=== PATIENT | female | born 1985 | race African-American/Black ===

== ENCOUNTER 2019-06-04 11:13 | Emergency (ER) | payer OTHER, SELFPAY ==
--- NOTE | ~2019-06-04 | XR_ITS ---
EXAMINATION: XR chest 2V EXAM DATE: 06/04/2019 12:32 INDICATION: Shortness of breath. TECHNIQUE: Frontal and lateral projections of the chest obtained and reviewed. Comparison is made to prior examination from 08/12/2017. FINDINGS: The lungs are clear. There are no pleural effusions. The cardiomediastinal silhouette is within normal limits. There is no pneumothorax suspected. The bones and soft tissues are unremarkab le. IMPRESSION: Normal chest x-ray exam. Reviewed, dictated and finalized at location B. T MECHANIC IMPRESSION: Normal chest x-ray exam.
[2019-06-04 11:16] VITALS: BP 144/102; PULSE 117; RESP 20; TEMP 36.3; O2SAT 99
[2019-06-04] MEDS: IPRATROPIUM BR 0.02% INH SOLN 0.5 MG/2.5 ML VIAL INHALATION (12:11)
[2019-06-04 12:12] VITALS: PULSE 100; RESP 16
[2019-06-04 12:23] VITALS: PULSE 104; RESP 16
[2019-06-04 12:25] LABS: Basophils Percent Auto 0.8 % (0.2-1.2); Eosinophils Absolute Auto 0.1 K/mm3 (0-0.3); Eosinophils Percent Auto 2.3 % (0-4.4); Hematocrit 42.3 % (37.0-47.0); Hemoglobin 13.9 g/dL (12.0-15.0); Lymphocytes Absolute Auto 0.91 K/mm3 (0.9-3.2); Lymphocytes Percent Auto 34.7 % (18.3-44.2); Mean Corpuscular HGB Conc 32.9 g/dl (32-36); Mean Corpuscular Hemoglobin 29.3 pg (26-34); Mean Corpuscular Volume 89.1 fl (80-100); Mean Platelet Volume 9.6 fl (7.4-10.4); Monocytes Absolute Auto 0.6 K/mm3 (0.1-0.6); Monocytes Percent Auto 22.5 % (2.6-8.5); Neutrophils Percent Auto 39.7 % (45.5-73.1); Platelet Count Result 227 k/mm3 (150-375); Red Blood Count 4.75 M/mm3 (4.2-5.4); Red Cell Distribution Width 13.1 % (11.5-14.5); White Blood Count 2.6 K/mm3 (4.5-10.0)
--- NOTE | 2019-06-04 12:40 | ED.URI ---
HPI - URI/Sore Throat General Chief Complaint: Upper Respiratory Infection Stated Complaint: COUGH,OUT OF BREATH Time Seen by Provider: 06/04/19 11:36 Source: patient Mode of arrival: ambulatory Limitations: no limitations History of Present Illness HPI Narrative: This is a 33-year-old female that presents the emergency department for cold symptoms since yesterday. Reports cough, congestion, runny nose and fever. Also reports she has been feeling short of breath since yesterday. Reports a history of asthma as a child. Denies chest pain. Related Data Home Medications Medication Instructions Recorded Confirmed lisinopril-hydrochlorothiazide tablet 06/04/19 Allergies Allergy/AdvReac Type Severity Reaction Status Date / Time Penicillins Allergy Unknown Unknown Verified 06/04/19 11:26 Review of Systems Review of Systems: Narrative: CONSTITUTIONAL: Reports fever, chills ENT: Reports rhinorrhea, congestion. Denies sore throat, or otalgia. CARDIOVASCULAR: Denies chest pain RESPIRATORY: Reports cough and dyspnea. All systems reviewed & are unremarkable except as noted in HPI and below PMFSH Past Medical History Medical History (Updated 06/04/19 @ 13:22 by Kalli Casillas PA-C) History of anemia History of colon cancer History of hyperlipidemia History of hypertension Surgical History Surgical History (Updated 06/04/19 @ 12:41 by Kalli Casillas PA-C) History of section Family History Family History (Updated 03/31/14 @ 14:45 by DOCTOR UNKNOWN) Father Hypertension Other Diabetes mellitus Family history of malignant neoplasm of ovary Social History Social History Smoking status: Never smoker Second hand tobacco smoke exposure: No Alcohol intake: never Gender identity (if verbalized by the patient): Female Exam Narrative: Exam Narrative: GENERAL: Well-appearing, well-nourished, and in no acute distress. HEAD: Normocephalic, atraumatic. EYES: EOMI. ENT: Turbinates swollen and pale. Mucous membranes moist. Oropharynx without tonsillar hypertrophy exudate or other lesions. Bilateral TMs pearly ding non-bulging NECK: Supple. No adenopathy or masses. No carotid bruits or JVD CHEST: Clear to auscultation. No respiratory distress. No wheezes rales or rhonchi HEART: Regular rate and rhythm. No murmur heard. Normal peripheral pulses. EXTREMITIES: Normal range of motion. No edema. SKIN: Warm, dry, no rash. NEURO: No focal deficits. Alert and oriented x3. PSYCH: Normal mood and affect Course Vital Signs Vital signs: Vital Signs Temperature 97.3 F L 06/04/19 11:16 Pulse Rate 117 H 06/04/19 11:16 Respiratory Rate 20 06/04/19 11:16 Blood Pressure 144/102 H 06/04/19 11:16 Pulse Oximetry 99 06/04/19 11:16 Temperature 97.3 F L 06/04/19 11:16 Pulse Rate 104 H 06/04/19 12:23 Respiratory Rate 16 06/04/19 12:23 Blood Pressure 144/102 H 06/04/19 11:16 Pulse Oximetry 99 06/04/19 11:16 MDM - URI/Sore Throat MDM Narrative Medical decision making narrative: Patient presents the emergency department for cold symptoms. Also reports some shortness of breath since onset of cold symptoms. Patient's oxygen saturation is normal on room air. Mildly tachycardic upon arrival, otherwise vitals are normal. She reports relief after nebulizer treatment. She does report history of asthma as a child. CBC with leukopenia, patient is Influenza positive. Hemoglobin is normal. Metabolic panel with mild hyponatremia, otherwise no acute changes. Chest x-ray is clear. Patient will be started on Tamiflu as her symptoms started yesterday. She also has small children at home. She was instructed on symptomatic care. She is to follow-up with primary care doctor. She was given warnings to return to the ER Lab Data Attestation: I reviewed the patient's lab results. Result diagrams: 06/04/19 12:20 06/04/19 12:20 Labs: Lab Results 06/04/19 0
[2019-06-04 12:41] LABS: Blood Urea Nitrogen 12 mg/dL (7-17); Calcium 9.8 mg/dL (8.4-10.2); Carbon Dioxide 22 mmol/L (22-30); Chloride 101 mmol/L (98-107); Estimated CRCL calculation 150 ml/min; Estimated Glomerular Filt Rate > 60; Glucose 93 mg/dL (65-105); Potassium 3.9 mmol/L (3.4-5.0); Sodium 133 mmol/L (137-145)
== END 2019-06-04 13:28 | disposition home or self-care (01) ==
PROVIDERS: Physician Assistant; Emergency Provider Emergency Medicine; PCP Family Medicine
DX: J10.1 Influenza due to other identified influenza virus with other respiratory manifestations (principal); I10 Essential (primary) hypertension; E78.5 Hyperlipidemia, unspecified; Z86.2 Personal history of diseases of the blood and blood-forming organs and certain disorders involving the immune mechanism; Z85.038 Personal history of other malignant neoplasm of large intestine
CPT/HCPCS: 36415; 71046; 80048; 85025; 87804; 94640; 99283

== ENCOUNTER 2020-01-31 15:31 | Emergency (ER) | payer OTHER, SELFPAY ==
[2020-01-31 15:32] VITALS: BP 140/93; PULSE 124; RESP 22; TEMP 37.1; O2SAT 100
[2020-01-31 15:45] VITALS: BP 156/89; PULSE 104; RESP 16; O2SAT 100
[2020-01-31] MEDS: diphenhydrAMINE HCl INJ 50 MG/ML VIAL 25 MG IV PUSH (16:23)
[2020-01-31] MEDS: methylPREDNISolone SOD SUCC 125 MG VIAL IV PUSH (16:24)
[2020-01-31] MEDS: ONDANSETRON INJ 4 MG/2 ML VIAL IV PUSH (16:29)
[2020-01-31 16:37] VITALS: BP 155/110; PULSE 99; RESP 18; O2SAT 100
[2020-01-31 17:48] VITALS: BP 147/83; PULSE 103; RESP 18; O2SAT 100
--- NOTE | 2020-01-31 18:13 | ED.ALLEREA ---
HPI - Allergic Reaction General Chief complaint: Allergic Reaction Stated complaint: um, my doctor prescribed me medicine and have a ra Time Seen by Provider: 01/31/20 15:40 Source: patient Mode of arrival: ambulatory Limitations: no limitations History of Present Illness HPI narrative: 34-year-old with a no major medical problems here with complaints of having allergic reaction to phentermine which she started 4 days ago. Patient states that she broke out in rash few hours ago. She denies any shortness of breath. However complains of nausea. Denies any chest pain. complaint: allergic reaction Onset (ago): hour(s) (1) Exposure: medication (Phentermine) Symptoms: rash and itching Severity: moderate Related Data Home Medications Medication Instructions Recorded Confirmed lisinopril-hydrochlorothiazide tablet 06/04/19 phentermine mg 01/31/20 Allergies Allergy/AdvReac Type Severity Reaction Status Date / Time Penicillins Allergy Unknown Unknown Verified 01/31/20 15:41 Review of Systems Review of Systems: All systems reviewed & are unremarkable except as noted in HPI and below ROS unobtainable: Yes unobtainable due to medical condition Constitutional: Constitutional: Reports no additional constitutional complaints Eyes: Eyes: Reports as per HPI ENT: Reports system reviewed and no additional complaints, except as documented Cardiovascular: Cardiovascular: Reports no additional cardiovascular complaints Respiratory: Respiratory: Reports no additional respiratory complaints Musculoskeletal: Musculoskeletal: Reports as per HPI Integumentary/Breasts: Skin/Breast: Reports as per HPI PMFSH Past Medical History Medical History History of anemia History of colon cancer History of hyperlipidemia History of hypertension Surgical History Surgical History History of section Family History Family History Father Hypertension Other Diabetes mellitus Family history of malignant neoplasm of ovary Social History Social History Smoking status: Never smoker Second hand tobacco smoke exposure: No Alcohol intake: never Gender identity (if verbalized by the patient): Female Exam Narrative: Exam Narrative: GENERAL: Well-appearing, well-nourished, and in no acute distress. HEAD: Normocephalic, atraumatic. EYES: PERRLA and EOMI. ENT: Nares clear, no rhinorrhea or epistaxis. Mucous membranes moist. NECK: Supple. CHEST: Clear to auscultation. No respiratory distress. HEART: Regular rate and rhythm. No murmur heard. Normal peripheral pulses. ABDOMEN: Soft, nontender, nondistended, normal active bowel sounds. EXTREMITIES: Normal range of motion. No edema. SKIN: Warm, has urticarial lesions on the upper extremity NEURO: No focal deficits. Alert and oriented x3. PSYCH: Normal mood and affect. Course Course Emergency Course: With obvious urticaria we will give her Solu-Medrol 125 and Benadryl 25 IV along with 4 of Zofran for nausea. Vital Signs Vital signs: Vital Signs Temperature 37.1 C 01/31/20 15:32 Pulse Rate 124 H 01/31/20 15:32 Respiratory Rate 22 H 01/31/20 15:32 Blood Pressure 140/93 H 01/31/20 15:32 Pulse Oximetry 100 01/31/20 15:32 Temperature 37.1 C 01/31/20 15:32 Pulse Rate 103 H 01/31/20 17:48 Respiratory Rate 18 01/31/20 17:48 Blood Pressure 147/83 H 01/31/20 17:48 Pulse Oximetry 100 01/31/20 17:48 MDM - Allergic Reaction MDM Narrative Medical decision making narrative: Patient started feeling much better after IV steroids and Benadryl. I advised her to stop the medication take steroids as needed follow-up with the primary doctor. Discharge Plan Discharge Clinical Impression: Allergic reaction Patient Disposition: Home
[2020-01-31 18:31] VITALS: BP 161/87; PULSE 105; RESP 20; O2SAT 99
== END 2020-01-31 18:34 | disposition home or self-care (01) ==
PROVIDERS: Emergency Provider Family Medicine; PCP Family Medicine
DX: L27.0 Generalized skin eruption due to drugs and medicaments taken internally (principal); T50.5X5A Adverse effect of appetite depressants, initial encounter; E78.5 Hyperlipidemia, unspecified; I10 Essential (primary) hypertension; Z85.038 Personal history of other malignant neoplasm of large intestine; Z86.2 Personal history of diseases of the blood and blood-forming organs and certain disorders involving the immune mechanism
CPT/HCPCS: 96374; 96375; 99284; J1200; J2405; J2930

== ENCOUNTER 2020-06-06 19:57 | Emergency (ER) | payer OTHER, SELFPAY ==
--- NOTE | ~2020-06-06 | XR_ITS ---
EXAMINATION: XR chest 1V portable 06/06/2020 20:40 INDICATION: Shortness of breath PROCEDURE: AP portable chest COMPARISON: Comparison to multiple prior studies sequentially, with oldest reviewed study dated 04/05. FINDINGS: The lungs are clear. The cardiomediastinal silhouette is within normal limits. There are no pleural effusions. There is no pneumothorax suspected. IMPRESSION: 1: NO ACUTE CARDIOPULMONARY DISEASE. Reviewed, dictated and finalized at location A. 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
[2020-06-06 20:12] VITALS: BP 149/100; PULSE 101; RESP 12; TEMP 36.6; O2SAT 100
--- NOTE | 2020-06-06 20:20 | ECG_ITS ---
Measurements Intervals [place] Rate: 84 P: 18 IN: 144 QRS: 17 QRSD: 93 T: 31 QT: 346 QTc: 409 Interpretive Statements SINUS RHYTHM EARLY PRECORDIAL R/S TRANSITION VOLTAGE CRITERIA FOR LVH BORDERLINE ECG Electronically Signed On 06-07-2020 6:53:18 LARD MIXER by Fito Hatfield D.O.
[2020-06-06 20:45] LABS: Basophils Percent Auto 0.3 % (0.2-1.2); Eosinophils Absolute Auto 0.2 K/mm3 (0-0.3); Eosinophils Percent Auto 3.8 % (0-4.4); Hematocrit 40.3 % (37.0-47.0); Hemoglobin 13.2 g/dL (12.0-15.0); Immature Granulocyte Absolute 0.01 K/mm3 (0.00-0.031); Immature Granulocyte Percent A 0.2 % (0-0.5); Lymphocytes Absolute Auto 1.82 K/mm3 (0.9-3.2); Lymphocytes Percent Auto 30.3 % (18.3-44.2); Mean Corpuscular HGB Conc 32.8 g/dl (32-36); Mean Corpuscular Hemoglobin 29.5 pg (26-34); Mean Corpuscular Volume 90.2 fl (80-100); Mean Platelet Volume 8.9 fl (7.4-10.4); Monocytes Absolute Auto 0.5 K/mm3 (0.1-0.6); Monocytes Percent Auto 7.8 % (2.6-8.5); Neutrophils Absolute Auto 3.5 K/mm3 (1.3-6.7); Neutrophils Percent Auto 57.6 % (45.5-73.1); Platelet Count Result 277 k/mm3 (150-375); Red Blood Count 4.47 M/mm3 (4.2-5.4); Red Cell Distribution Width 13.2 % (11.5-14.5)
[2020-06-06 20:56] LABS: Alanine Aminotransferase 22 U/L (4-35); Albumin Level 4.1 g/dL (3.5-5.1); Alkaline Phosphatase 98 U/L (38-126); Anion Gap 6 mmol/L (8-16); Aspartate Amino Transferase 23 U/L (14-36); Bilirubin,Total 0.8 mg/dL (0.2-1.3); Blood Urea Nitrogen 13 mg/dL (7-17); Calcium 9.4 mg/dL (8.4-10.2); Carbon Dioxide 25 mmol/L (22-30); Chloride 107 mmol/L (98-107); Estimated CRCL calculation 240 ml/min; Estimated Glomerular Filt Rate > 60; Glucose 102 mg/dL (65-105); Sodium 138 mmol/L (137-145)
[2020-06-06 21:08] LABS: Troponin I < 0.012 ng/mL (0.000-0.034)
--- NOTE | 2020-06-06 21:08 | ED.SOB ---
HPI - SOB/Dyspnea General Chief Complaint: Shortness of Breath/Dyspnea Stated Complaint: SOB/CRUZ/abdominal pain Time Seen by Provider: 06/06/20 20:32 Source: patient Mode of arrival: ambulatory Limitations: no limitations History of Present Illness HPI Narrative: 34-year-old female Hypertension Day history of mild shortness of breath, tight feeling in her chest, dry cough, and achiness No fever She just found out that her mom who she was visiting with a few days ago tested positive for the coronavirus Related Data Home Medications Medication Instructions Recorded Confirmed lisinopril-hydrochlorothiazide tablet 06/04/19 Allergies Allergy/AdvReac Type Severity Reaction Status Date / Time Penicillins Allergy Unknown Unknown Verified 06/06/20 20:21 Review of Systems Review of Systems: All systems reviewed & are unremarkable except as noted in HPI and below Constitutional: Constitutional: Denies chills, Reports fatigue, Denies fever(s), Denies headache(s) and Reports weakness Eyes: Eyes: Reports no additional eye complaints and Denies change in vision ENT: Denies headache(s), Denies epistaxis, Denies nasal congestion and Denies sore throat Cardiovascular: Cardiovascular: Denies chest pain, Denies leg edema, Denies palpitations and Denies dyspnea Respiratory: Respiratory: Reports cough, Denies dyspnea and Denies wheezing Gastrointestinal: Gastrointestinal: Denies abdominal pain, Denies diarrhea, Reports nausea and Denies vomiting Genitourinary: Genitourinary: Denies hematuria, Denies urinary frequency and Denies dysuria Musculoskeletal: Musculoskeletal: Reports myalgias, Denies deformity, Denies arthralgias, Denies joint swelling, Denies muscle weakness and Denies numbness Integumentary/Breasts: Skin/Breast: Denies rash and Denies wounds Neurologic: Denies headache(s), Denies focal weakness, Denies numbness and Denies weakness Psychiatric: Psychiatric: Reports no additional psychiatric complaints Endocrine: Endocrine: Denies fatigue and Denies palpitations Hematologic/Lymphatic: Hematologic/Lymphatic: Denies easy bleeding and Denies easy bruising Allergic/Immunologic: Allergic/Immunologic: Denies wheezing PMFSH Past Medical History Medical History (Updated 06/06/20 @ 22:01 by Jose Enrique Acosta MD) History of anemia History of colon cancer History of hyperlipidemia History of hypertension Surgical History Surgical History History of section Family History Family History Father Hypertension Other Diabetes mellitus Family history of malignant neoplasm of ovary Social History Social History Smoking status: Never smoker Second hand tobacco smoke exposure: No Alcohol intake: never Gender identity (if verbalized by the patient): Female Exam Const: General: no acute distress, well developed, alert and awake Nutritional Appearance: well nourished Orientation/consciousness: patient oriented x3 (alert) Limitations: no limitations HENMT: Head: normocephalic and atraumatic Ears: external ears normal General nose exam: No nasal discharge present and no epistaxis Face and sinus: face symmetric Eyes: Conjunctivae: conjunctivae normal Sclera: sclerae normal EOM: EOMs intact bilaterally Neck: Neck: normal visual inspection, supple and no JVD Chest: Chest palpation & inspection: deferred Resp: Effort & Inspection: normal respiratory effort Auscultation: clear to auscultation bilaterally and other (BS =) Cardio: Rate: regular rate Rhythm: regular rhythm Heart sounds: no gallops and no murmurs GI: Inspection: normal to inspection Back/Spine/Pelvis: Thoracic/Lumbar Spine: thoracic and lumbar spine normal to inspection Skin: General skin exam: normal color and no rashes or lesions noted Neuro: General: p
[2020-06-06] MEDS: ACETAMINOPHEN 500 MG TABLET 1000 MG PO (21:20)
[2020-06-06 22:20] VITALS: BP 140/90; PULSE 91; RESP 20; O2SAT 99
[2020-06-07 19:18] LABS: SARS-CoV-2 RNA PCR Negative
== END 2020-06-06 22:22 | disposition home or self-care (01) ==
PROVIDERS: Emergency Medicine Emergency Medical Services; Emergency Provider Emergency Medicine; PCP Family Medicine
DX: J06.9 Acute upper respiratory infection, unspecified (principal); Z20.822 Contact with and (suspected) exposure to COVID-19; I10 Essential (primary) hypertension; E78.5 Hyperlipidemia, unspecified; Z86.2 Personal history of diseases of the blood and blood-forming organs and certain disorders involving the immune mechanism; Z85.038 Personal history of other malignant neoplasm of large intestine; R94.31 Abnormal electrocardiogram [ECG] [EKG]
CPT/HCPCS: 36415; 71045; 80053; 84484; 85025; 93005; 99284; A9270; C9803; U0003; U0005

== ENCOUNTER 2020-08-04 14:36 | Emergency (ER) | payer OTHER, SELFPAY ==
--- NOTE | ~2020-08-04 | XR_ITS ---
EXAMINATION: XR foot LT min 3V DATE: 08/04/2020 15:17 INDICATION: Left foot pain. TECHNIQUE: 4 views of left foot were obtained. COMPARISON: None. FINDINGS: Bone alignment is normal. No fracture. There is mild osteoarthritis of first metatarsophala ngeal joint. There is an enthesophyte at plantar aspect of calcaneal tuberosity. IMPRESSION: 1. Mild osteoarthritis of first metatarsophalangeal joint. Reviewed, dictated and finalized at location A.
[2020-08-04 14:48] VITALS: BP 150/92; PULSE 95; RESP 16; TEMP 37.4; O2SAT 100
--- NOTE | 2020-08-04 15:24 | ED.LOWEXIN ---
HPI - Extremity Injury (Lower) General Chief Complaint: Extremity Injury, Lower Stated Complaint: L FOOT PAIN Time Seen by Provider: 08/04/20 15:10 Source: patient Mode of arrival: ambulatory Limitations: no limitations History of Present Illness HPI Narrative: Lindsay Murphy is a 34 yo female with a PMH of HTN comes to [facility] with pain in her proximal lateral dorsal part of foot that started this morning after she left the house. She has had this pain prior but not nearly as severe and she rates her pain as 8 out of 10 [address] she [address] and only one when she is resting. Otherwise she has poor supporting shoes on she says that her foot begins to swell and then becomes painful. Has some pain and tenderness when she places a tennis shoes intermittently She has had this intermittently in the past and gradually resolved. She had called her PCP who told her to come here as he had no hours to see her this afternoon Related Data Home Medications Medication Instructions Recorded Confirmed lisinopril-hydrochlorothiazide tablet 06/04/19 medroxyprogesterone mg IM 08/04/20 Allergies Allergy/AdvReac Type Severity Reaction Status Date / Time Penicillins Allergy Unknown Unknown Verified 08/04/20 14:41 Review of Systems Review of Systems: Narrative: CONSTITUTIONAL: Denies fever, chills, sweats. EYES: Denies visual changes, redness, discharge. ENT: Denies rhinorrhea, congestion, sore throat, otalgia. CARDIOVASCULAR: Denies chest pain, palpitations, edema. RESPIRATORY: Denies dyspnea, wheezing, cough GASTROINTESTINAL: Denies abdominal pain, nausea, vomiting, diarrhea. GENITOURINARY: Denies dysuria, hematuria, abnormal discharge SKIN: Denies rash or itching. NEUROLOGIC: Denies numbness, or focal weakness. PSYCHIATRIC: Denies anxiety or depression. Left dorsal lateral pain that came very bad with walking today, complains of some chronicity of tenderness with lacing up tennis shoes for instance PMFSH Past Medical History Medical History (Updated 08/04/20 @ 15:35 by Erin Stevens CNP) History of anemia History of colon cancer History of hyperlipidemia History of hypertension Surgical History Surgical History History of section Family History Family History Father Hypertension Other Diabetes mellitus Family history of malignant neoplasm of ovary Social History Social History Smoking status: Never smoker Second hand tobacco smoke exposure: No Alcohol intake: never Gender identity (if verbalized by the patient): Female Comments At time of signature, I agree with nursing past medical, surgical, social and family history. There is no relevant family history pertinent to the presenting complaint. Patient has a history of hypertension and took her medication late as her blood pressure is elevated at this visit Exam Narrative: Exam Narrative: GENERAL: This is a well-nourished, well-developed patient, in mild distress. HEAD: normocephalic, atraumatic. EYES: Sclera clear/white. Vision is grossly intact. EARS: External ears normal, . Hearing grossly intact. NOSE: External nose normal without nasal discharge, nares without redness, no rhinorrhea. THROAT: Mucous membranes moist, NECK: Neck supple, non-tender CARDIOVASCULAR: Regular rate and rhythm without murmurs, gallops, or rubs. RESPIRATORY: Clear to auscultation. Breath sounds equal bilaterally. No wheezes, rales, or rhonchi. GASTROINTESTINAL: Abdomen soft, non-tender, SKIN: warm, intact with no suspicious lesions or rash, good texture and turgor. NEURO: awake, alert, and oriented to person, place and time. There were no obvious focal neurologic abnormalities. Steady gait EXTREMITIES: Normal range of motion. Is able to flex and extend foot there is notable swelling base of ankle o
== END 2020-08-04 15:55 | disposition home or self-care (01) ==
PROVIDERS: Emergency Provider Nurse Practitioner; PCP Family Medicine
DX: M79.672 Pain in left foot (principal); E78.5 Hyperlipidemia, unspecified; I10 Essential (primary) hypertension; Z85.038 Personal history of other malignant neoplasm of large intestine
CPT/HCPCS: 73630; 99213; G0463

== ENCOUNTER 2021-08-08 11:35 | Emergency (ER) | payer OTHER, SELFPAY ==
[2021-08-08 11:47] VITALS: BP 133/93; PULSE 114; RESP 16; TEMP 36.8; O2SAT 97
--- NOTE | 2021-08-08 12:26 | ED.URI ---
HPI - URI/Sore Throat General Chief Complaint: Upper Respiratory Infection Stated Complaint: headache, cough,body pain Time Seen by Provider: 08/08/21 12:18 Source: patient and RN notes reviewed Mode of arrival: ambulatory Limitations: no limitations History of Present Illness HPI Narrative: Patient presents today with a 2-day history of body aches, headache, cough, shortness of breath with exertion. Denies fever or any additional symptoms. States son had influenza last week. She has been taking some pain reliever with relief. MD elicited complaint: cough Related Data Home Medications Medication Instructions Recorded Confirmed lisinopril-hydrochlorothiazide tablet 06/04/19 Allergies Allergy/AdvReac Type Severity Reaction Status Date / Time Penicillins Allergy Unknown Unknown Verified 08/04/20 14:41 Review of Systems Review of Systems: CONSTITUTIONAL: Denies fever, chills, or sweats.+ Body ache EYES: Denies visual changes, redness, or discharge. ENT: Denies rhinorrhea, congestion, sore throat, or otalgia. CARDIOVASCULAR: Denies chest pain, palpitations, or edema. RESPIRATORY: + Cough, shortness of breath with exertion GASTROINTESTINAL: Denies abdominal pain, nausea, vomiting, or diarrhea. GENITOURINARY: Denies dysuria or hematuria. SKIN: Denies rash, itching, or wounds. MUSCULOSKELETAL: Denies back pain, joint pain, or myalgia. NEUROLOGIC: Denies numbness, tingling, or weakness.+ Headache PSYCH: Denies depression or anxiety. [facility] Past Medical History Medical History (Updated 08/08/21 @ 12:29 by Joann Harrell, IVONNE, BC) History of anemia History of colon cancer History of hyperlipidemia History of hypertension Surgical History Surgical History History of section Family History Family History Father Hypertension Other Diabetes mellitus Family history of malignant neoplasm of ovary Social History Social History Smoking status: Never smoker Second hand tobacco smoke exposure: No Alcohol intake: never Gender identity (if verbalized by the patient): Female Comments At time of signature, I have reviewed and agree with nursing past medical, surgical, social and family history unless otherwise noted. Please see nursing chart for further information. There is no relevant family history pertinent to the presenting complaint Exam Narrative: GENERAL: Mildly ill-appearing, well-nourished, and in no acute distress. HEAD: Normocephalic, atraumatic. EYES: EOMI. No redness or drainage. Conjunctivae normal. ENT: Mucous membranes pink and moist. Nares clear. No rhinorrhea. TMs normal bilaterally. Throat normal. Uvula midline. NECK: Normal AROM. Supple. No lymphadenopathy. CHEST: No respiratory distress. Clear to auscultation. HEART: Regular rate and rhythm. No murmur appreciated. Normal peripheral pulses. EXTREMITIES: Normal range of motion. No edema. SKIN: Warm, dry, no rash. Capillary refill normal. Normal skin turgor. NEURO: No focal deficits. Alert and oriented x3. Gait steady. PSYCH: Normal affect. No signs of depression or anxiety. Course Course Level of Care: Express Care Visit Vital Signs Vital signs: Vital Signs Temperature 98.3 F 08/08/21 11:47 Pulse Rate 114 H 08/08/21 11:47 Respiratory Rate 16 08/08/21 11:47 Blood Pressure 133/93 H 08/08/21 11:47 Pulse Oximetry 97 08/08/21 11:47 Temperature 98.3 F 08/08/21 11:47 Pulse Rate 114 H 08/08/21 11:47 Respiratory Rate 16 08/08/21 11:47 Blood Pressure 133/93 H 08/08/21 11:47 Pulse Oximetry 97 08/08/21 11:47 Reviewed. Pt has been instructed to follow up with her PCP regarding her elevated blood pressure today. MDM - URI/Sore Throat Differential Diagnosis Differential diagnosis: Likely upper respira
== END 2021-08-08 12:36 | disposition home or self-care (01) ==
PROVIDERS: Emergency Provider Nurse Practitioner; PCP Family Medicine
DX: J10.1 Influenza due to other identified influenza virus with other respiratory manifestations (principal); E78.5 Hyperlipidemia, unspecified; I10 Essential (primary) hypertension
CPT/HCPCS: 87804; 99213; G0463

== ENCOUNTER 2021-09-27 11:25 | Emergency (ER) | payer OTHER, MEDICAID, SELFPAY ==
--- NOTE | 2021-09-27 11:37 | ECG_ITS ---
Measurements Intervals [place] Rate: 87 P: 48 SD: 146 QRS: 22 QRSD: 88 T: 32 QT: 351 QTc: 423 Interpretive Statements SINUS RHYTHM WITH SINUS ARRHYTHMIA LEFT VENTRICULAR HYPERTROPHY MINIMAL Q WAVES- HIGH LATERAL LEADS BORDERLINE ECG Electronically Signed On 09-27-2021 12:20:35 CDT by Fito Hatfield D.O.
[2021-09-27 11:38] VITALS: BP 160/90; PULSE 85; RESP 16; TEMP 35.9; O2SAT 100
--- NOTE | 2021-09-27 11:42 | ED.CHESTPAIN ---
HPI - Chest Pain General Chief Complaint: Chest Pain Stated Complaint: CHEST HEAVINESS Time Seen by Provider: 09/27/21 11:37 Source: patient Mode of arrival: ambulatory Limitations: no limitations History of Present Illness HPI narrative: Ms. Murphy is a 35-year-old female patient presenting to the clinic today with complaints of chest heaviness since last night. She rates her chest heaviness a 2 out of 10 currently. She reports that she is having some periods of mild shortness of breath. The heaviness is to the center of her chest she denies any radiation of pain/heaviness. Her blood pressure is 160/90 in the clinic today and she is currently on lisinopril/ for high blood pressure. She has not been keeping record of her blood pressures but has stated that she has had some frequent headaches here lately and chills. She denies having any cough or runny nose. She denies any dizziness, visual changes, or changes in gait. Has had history of asthma as a child. Related Data Home Medications Medication Instructions Recorded Confirmed lisinopril 20 tablet 06/04/19 mg-hydrochlorothiazide 12.5 mg tablet Allergies Allergy/AdvReac Type Severity Reaction Status Date / Time Penicillins Allergy Unknown Unknown Verified 08/04/20 14:41 Review of Systems Review of Systems: Pertinent positives per HPI. Patient denies any fever, chills, rash, headache, visual changes, dizziness, cough, runny nose, sore throat, palpitations, nausea, vomiting, diarrhea, constipation, abdominal pain, or any urinary issues. [facility] Past Medical History Medical History History of anemia History of colon cancer History of hyperlipidemia History of hypertension Surgical History Surgical History History of section Family History Family History Father Hypertension Other Diabetes mellitus Family history of malignant neoplasm of ovary Social History Social History Smoking status: Never smoker Second hand tobacco smoke exposure: No Alcohol intake: never Gender identity (if verbalized by the patient): Female Comments At the time of my signature, I reviewed and agree with the nursing past medical, surgical, social, and family history. There is no relevant family history pertinent to the patient complaint. Exam Narrative: General: Well-developed, morbidly obese, in no apparent distress Head: Normocephalic, atraumatic. Cardio: Regular rate and rhythm, s1 and s2 normal, no murmur appreciated. Reports mid chest heaviness, nontender to palpation Resp: Clear to auscultation bilaterally, no rhonchi, rales, wheezing or rubs. Extremities: No deformity, no edema, no cyanosis, capillary refill less than 2 seconds, peripheral pulses palpable and strong. Integumentary: Mallow, warm, and dry, intact without lesion, no rashes. Course Course Emergency Course: Portions of this record may have been created with voice recognition software. Level of Care: Express Care Visit Vital Signs Vital signs: Vital Signs Temperature 35.9 C L 09/27/21 11:38 Pulse Rate 85 09/27/21 11:38 Respiratory Rate 16 09/27/21 11:38 Blood Pressure 160/90 H 09/27/21 11:38 Pulse Oximetry 100 09/27/21 11:38 Oxygen Delivery Room Air 09/27/21 11:38 Temperature 35.9 C L 09/27/21 11:38 Pulse Rate 85 09/27/21 11:38 Respiratory Rate 16 09/27/21 11:38 Blood Pressure 160/90 H 09/27/21 11:38 Pulse Oximetry 100 09/27/21 11:38 Oxygen Delivery Room Air 09/27/21 11:38 Vital signs reviewed MDM - Chest Pain MDM Narrative Medical decision making narrative: At the time of visit patient is resting comfortably on the exam stretcher. EKG was sinus arrhythmia heart rate 87 bpm without ect
--- NOTE | 2021-09-27 11:53 | PC.NURSE ---
Patient taken into room 1 and EKG done on arrival.
== END 2021-09-27 12:10 | disposition home or self-care (01) ==
PROVIDERS: Emergency Provider Nurse Practitioner Family; PCP Family Medicine
DX: R07.9 Chest pain, unspecified (principal); I10 Essential (primary) hypertension; E78.5 Hyperlipidemia, unspecified; Z85.038 Personal history of other malignant neoplasm of large intestine; Z20.822 Contact with and (suspected) exposure to COVID-19
CPT/HCPCS: 87426; 93005; 99213; C9803; G0463

== ENCOUNTER 2022-01-28 15:55 | Emergency (ER) | payer OTHER, MEDICAID, SELFPAY ==
--- NOTE | ~2022-01-28 | XR_ITS ---
XR hand LT min 3V DATE: 01/28/2022 16:17 INDICATION: Pain and swelling at third metacarpal bone TECHNIQUE: 3 views COMPARISON: None FINDINGS: No fracture or dislocation, periosteal reaction or bone destruction, joint space narrowing, erosive change or chondrocalcinosis. IMPRESSION: Negative Reviewed, dictated and finalized at location A. IMPRESSION: Negative
[2022-01-28 16:17] VITALS: BP 169/117; PULSE 104; RESP 16; TEMP 36.4; O2SAT 98
[2022-01-28 16:20] VITALS: BP 150/96
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
[2022-01-28 16:32] VITALS: BP 150/96
== END 2022-01-28 16:40 | disposition home or self-care (01) ==
PROVIDERS: Emergency Provider Nurse Practitioner Family; PCP Family Medicine
DX: M79.642 Pain in left hand (principal); E78.5 Hyperlipidemia, unspecified; I10 Essential (primary) hypertension; Z85.038 Personal history of other malignant neoplasm of large intestine
CPT/HCPCS: 73130; 99213; G0463

== ENCOUNTER 2022-01-29 00:56 | Emergency (ER) | payer OTHER, MEDICAID, SELFPAY ==
--- NOTE | ~2022-01-29 | CT_ITS ---
EXAMINATION: CT brain wo con DATE: 01/29/2022 01:53 INDICATION: Frontal headache. TECHNIQUE: Computed tomography (CT) of the head was performed without intravenous contrast. The mA wa s adjusted according to patient size. Iterative reconstruction technique was employed. The dose-lengt h product was 605.33 mGy-cm. COMPARISON: Head CT 12/12/2004 FINDINGS: There is no intracranial hemorrhage, acute infarction, or abnormal intracranial mass lesion . The ventricles are normal in size. There is mucosal thickening in the paranasal sinuses. The orbits are normal. The mastoid air cells are normal. IMPRESSION: 1. Normal brain. Reviewed, dictated and finalized at location A. IMPRESSION: 1. Normal brain.
[2022-01-29 01:04] VITALS: BP 145/106; PULSE 83; RESP 16; TEMP 37.1; O2SAT 98
--- NOTE | 2022-01-29 01:21 | ED.HA ---
HPI - Headache General Chief Complaint: Headache Stated Complaint: slight headache, hypertensive Time Seen by Provider: 01/29/22 01:04 Source: patient Mode of arrival: ambulatory Limitations: no limitations History of Present Illness HPI Narrative: This is a 36-year-old female that presents to the emergency department for elevated blood pressure. Reports known history of hypertension. She takes lisinopril HCTZ for this. Does report that she had forgotten to take her medication today. She was evaluated in urgent care for right hand complaint and found to be hypertensive. She went home and took her blood pressure medication. She started to develop a headache which concerned her and prompted her to be seen again. She was concerned that her blood pressure was elevated again. Denies fever, visual changes, vomiting, numbness, or weakness Related Data Home Medications Medication Instructions Recorded Confirmed lisinopril 20 1 tablet PO DAILY 06/04/19 01/28/22 mg-hydrochlorothiazide 12.5 mg tablet medroxyprogesterone 150 mg/mL See Rx Instructions .Route .COMPLEX 01/28/22 01/28/22 intramuscular syringe Allergies Allergy/AdvReac Type Severity Reaction Status Date / Time Penicillins Allergy Unknown Unknown Verified 01/29/22 01:10 Review of Systems Review of Systems: CONSTITUTIONAL: Denies fever EYES: Denies visual changes GASTROINTESTINAL: Denies vomiting NEUROLOGIC: Reports headache. Denies numbness, or weakness. All systems reviewed & are unremarkable except as noted in HPI and below PMFSH Past Medical History Medical History (Updated 01/29/22 @ 02:36 by Kalli Casillas PA-C) History of anemia History of colon cancer History of hyperlipidemia History of hypertension Surgical History Surgical History History of section Family History Family History Father Hypertension Other Diabetes mellitus Family history of malignant neoplasm of ovary Social History Social History Smoking status: Never smoker Second hand tobacco smoke exposure: No Alcohol intake: never Gender identity (if verbalized by the patient): Female Exam Narrative: GENERAL: Well-appearing, well-nourished, and in no acute distress. HEAD: Normocephalic, atraumatic. EYES: PERRLA and EOMI. ENT: Nares clear, no rhinorrhea or epistaxis. Mucous membranes moist. Oropharynx without tonsillar hypertrophy exudate or other lesions. Bilateral TMs pearly ding non-bulging NECK: Supple. No adenopathy or masses. CHEST: Clear to auscultation. No respiratory distress. No wheezes rales or rhonchi HEART: Regular rate and rhythm. No murmur heard. Normal peripheral pulses. EXTREMITIES: Normal range of motion. No edema. Strength equal in bilateral upper and lower extremities (5/5) SKIN: Warm, dry, no rash. NEURO: No focal deficits. Alert and oriented x3. Cranial nerves II through XII grossly intact PSYCH: Normal mood and affect Course Vital Signs Vital signs: Vital Signs Temperature 98.7 F 01/29/22 01:04 Pulse Rate 83 01/29/22 01:04 Respiratory Rate 16 01/29/22 01:04 Blood Pressure 145/106 H 01/29/22 01:04 Pulse Oximetry 98 01/29/22 01:04 Oxygen Delivery Room Air 01/29/22 01:04 Temperature 98.7 F 01/29/22 01:04 Pulse Rate 61 01/29/22 02:39 Respiratory Rate 16 01/29/22 02:39 Blood Pressure 139/89 01/29/22 02:39 Pulse Oximetry 100 01/29/22 02:39 Oxygen Delivery Room Air 01/29/22 01:04 MDM - Headache MDM Narrative Medical decision making narrative: Patient presents the emergency department for headache associated with hypertension. She is afebrile and nontoxic-appearing. She is neurologically intact. Mildly hypertensive upon arrival with blood pressure of 145/106. This did improve with treatment of her headache. C
[2022-01-29 01:31] VITALS: BP 147/94
[2022-01-29] MEDS: SODIUM CHLORIDE 0.9% IV 1,000 ML 999 ML IV CONT (01:33)
[2022-01-29] MEDS: diphenhydrAMINE HCl INJ 50 MG/ML VIAL 25 MG IV PUSH (01:33)
[2022-01-29] MEDS: METOCLOPRAMIDE HCL INJ 10 MG/2 ML VIAL IV PUSH (01:33)
[2022-01-29 02:39] VITALS: BP 139/89; PULSE 61; RESP 16; O2SAT 100
[2022-01-29 03:04] VITALS: BP 139/89; PULSE 75; RESP 21; O2SAT 100
== END 2022-01-29 03:05 | disposition home or self-care (01) ==
PROVIDERS: Emergency Provider Emergency Medicine; PCP Family Medicine
DX: I10 Essential (primary) hypertension (principal); R51.9 Headache, unspecified; E78.5 Hyperlipidemia, unspecified; Z86.2 Personal history of diseases of the blood and blood-forming organs and certain disorders involving the immune mechanism; Z85.038 Personal history of other malignant neoplasm of large intestine
CPT/HCPCS: 70450; 96361; 96374; 96375; 99284; J1200; J2765; J7030

== ENCOUNTER 2022-08-16 13:02 | Emergency (ER) | payer OTHER, SELFPAY ==
[2022-08-16] VITALS (7 sets, daily range): BP systolic 136–147; BP diastolic 104–105; PULSE 92–106; RESP 16–21; TEMP 37.2; O2SAT 95–99
--- NOTE | ~2022-08-16 | CT_ITS ---
EXAMINATION: CT abdomen pelvis w con DATE: 08/16/2022 15:37 INDICATION: Mid abdominal pain. TECHNIQUE: Computed tomography (CT) of the abdomen and pelvis was performed with 100 mL Omnipaque 350 intravenous contrast. Automated exposure control and iterative reconstruction technique were employe d. The dose-length product was 1753.13 mGy-cm. COMPARISON: CT abdomen and pelvis 06/18/2017 FINDINGS: The visualized portions of the lung bases demonstrate minimal atelectasis. No pleural effus ion. The heart size is normal. No pericardial effusion. The liver, gallbladder, spleen, pancreas, adr enal glands, and left kidney are normal. There is a 15 mm cyst in right kidney. There is liquid stool in the colon suggestive of diarrhea. There are changes of right hemicolectomy. There are no dilated loops of bowel. There are no pathologically enlarged lymph nodes. There is no free intraperitoneal fl uid. There is a benign bone island in right ilium. There is mild thoracolumbar spondylosis. IMPRESSION: 1. No etiology for the patient's symptoms. Reviewed, dictated and finalized at location A.
[2022-08-16 13:31] LABS: Basophils Percent Auto 0.3 % (0.2-1.2); Eosinophils Absolute Auto 0.1 K/mm3 (0-0.3); Eosinophils Percent Auto 4.1 % (0-4.4); Hemoglobin 14.2 g/dL (12.0-15.0); Lymphocytes Absolute Auto 0.95 K/mm3 (0.9-3.2); Lymphocytes Percent Auto 27.6 % (18.3-44.2); Mean Corpuscular Hemoglobin 29.9 pg (26-34); Mean Corpuscular Volume 90.5 fl (80-100); Mean Platelet Volume 8.9 fl (7.4-10.4); Monocytes Absolute Auto 0.4 K/mm3 (0.1-0.6); Monocytes Percent Auto 11.9 % (2.6-8.5); Neutrophils Absolute Auto 1.9 K/mm3 (1.3-6.7); Neutrophils Percent Auto 56.1 % (45.5-73.1); Platelet Count Result 304 k/mm3 (150-375); Red Blood Count 4.75 M/mm3 (4.2-5.4); White Blood Count 3.4 K/mm3 (4.5-10.0)
[2022-08-16 13:54] LABS: Alanine Aminotransferase 31 U/L (6-35); Albumin Level 4.5 g/dL (3.5-5.1); Alkaline Phosphatase 96 U/L (38-126); Anion Gap 9 mmol/L (8-16); Aspartate Amino Transferase 33 U/L (14-36); Bilirubin,Total 1.1 mg/dL (0.2-1.3); Blood Urea Nitrogen 7 mg/dL (7-17); Calcium 8.7 mg/dL (8.4-10.2); Carbon Dioxide 25 mmol/L (22-30); Chloride 103 mmol/L (98-107); Estimated CRCL calculation 148 ml/min; Estimated Glomerular Filt Rate > 60; Glucose 118 mg/dL (65-110); Lipase 139 U/L (23-300); Sodium 137 mmol/L (137-145)
[2022-08-16 14:07] LABS: Appearance Urine Clear (Clear); Bilirubin Urine Negative (Negative); Blood Urine Negative (Negative); Color Urine Yellow (Yellow); Glucose Urine UA Negative (Negative); Ketones Urine Negative (Negative); Leukocyte Esterase Ur Negative LEU/UL (Negative); Nitrate Urine Negative (Negative); Protein Urine Trace mg/dL (Negative); Specific Grav Ur 1.025 (1.001-1.035); Urobilinogen Urine 0.2 mg/dL (<2.0); pH Urine 5.5 (5.0-9.0)
[2022-08-16 14:16] LABS: Add Urine Microscopic? YES; RBC Urine 0-2 /hpf (0-2); WBC Urine 0-3 /hpf (0-3)
[2022-08-16 14:17] LABS: Bacteria Urine None seen /hpf; Squamous Epithelial Cell Urine Rare /hpf (Few)
--- NOTE | 2022-08-16 15:01 | ED.ABDPAIN ---
HPI - Abdominal Pain General Chief Complaint: Abdominal Pain Stated Complaint: stomach pain Time Seen by Provider: 08/16/22 14:59 Source: patient Mode of arrival: ambulatory Limitations: no limitations History of Present Illness HPI narrative: 36 years old -[place] female presents with nausea and frequent watery stools started yesterday, last night. Patient developed mid abdominal cramps, got worried, take extra laxative once, subsequently developed massive diarrhea. She denies any fever, chills, vomiting. Related Data Home Medications Medication Instructions Recorded Confirmed lisinopril 20 1 tablet PO DAILY 06/04/19 01/28/22 mg-hydrochlorothiazide 12.5 mg tablet medroxyprogesterone 150 mg/mL See Rx Instructions .Route .COMPLEX 01/28/22 01/28/22 intramuscular syringe Allergies Allergy/AdvReac Type Severity Reaction Status Date / Time Penicillins Allergy Unknown Unknown Verified 08/16/22 14:38 [facility] Past Medical History Medical History (Updated 08/16/22 @ 16:09 by Basia Rodriguez MD) History of anemia History of colon cancer History of hyperlipidemia History of hypertension Surgical History Surgical History History of section Family History Family History Father Hypertension Other Diabetes mellitus Family history of malignant neoplasm of ovary Social History Social History Smoking status: Never smoker Second hand tobacco smoke exposure: No Alcohol intake: never Gender identity (if verbalized by the patient): Female Course Reevaluation(s) Reevaluation #1: Patient feeling much better after IV fluids, Zofran IV, burping and passing gas. Feels that she is ready to go home. Date: 08/16/22 Time: 16:15 Vital Signs Vital signs: Vital Signs Temperature 37.2 C 08/16/22 13:12 Pulse Rate 100 08/16/22 13:12 Respiratory Rate 20 08/16/22 13:12 Blood Pressure 139/104 H 08/16/22 13:12 Pulse Oximetry 99 08/16/22 13:12 Oxygen Delivery Room Air 08/16/22 13:12 Temperature 37.2 C 08/16/22 13:12 Pulse Rate 100 08/16/22 13:12 Respiratory Rate 20 08/16/22 13:12 Blood Pressure 139/104 H 08/16/22 13:12 Pulse Oximetry 99 08/16/22 13:12 Oxygen Delivery Room Air 08/16/22 13:12 MDM - Abdominal Pain MDM Narrative Medical decision making narrative: Patient came to the emergency room with mid abdominal cramps and diarrhea. Physical exam showed no significant abnormality. Differential diagnoses include food poisoning, viral gastroenteritis, electrolyte imbalance, diarrhea. Work-up today showed normal blood work-up, normal urine analysis, currently patient feeling much better after IV fluid and Zofran and ready to go home. the pt was discharged to home.the pt,s condition upon discharge was fair,education was provided to the pt in reference to the final impression,discharge study results,treatment,prognosis and need for follow up . Differential Diagnosis Differential diagnosis: Likely abdominal pain, acute appendicitis, diverticulitis, gastroenteritis and pancreatitis Lab Data 08/16/22 13:25 08/16/22 13:25 Labs: Lab Results 08/16/22 08/16/22 08/16/22 Range/Units 13:25 13:25 13:44 WBC 3.4 L (4.5-10.0) K/mm3 RBC 4.75 (4.2-5.4) M/mm3 Hgb 14.2 (12.0-15.0) g/dL Hct 43.0 (37.0-47.0) % MCV 90.5 (80-100) fl MCH 29.9 (26-34) pg MCHC 33.0 (32-36) g/dl RDW 13.0 (11.5-14.5) % Plt Count 304 (150-375) k/mm3 MPV 8.9 (7.4-10.4) fl Immature Gran % (Auto) 0.0 (0-0.5) % Neut % (Auto) 56.1 (45.5-73.1) % Lymph % (Auto) 27.6 (18.3-44.2) % Tompkins % (Auto) 11.9 H (2.6-8.5) % Eos % (Auto) 4.1 (0-4.4) % Baso % (Auto) 0.3 (0.2-1.2) % Lymph # (Auto) 0.95 (0.9-3.2) K/mm3 Tompkins # (Auto)
[2022-08-16] MEDS: SODIUM CHLORIDE 0.9% IV 2,000 ML 999 ML IV CONT (15:08)
[2022-08-16] MEDS: ONDANSETRON INJ 4 MG/2 ML VIAL 8 MG IV PUSH (15:12)
--- NOTE | 2022-08-16 15:54 | PC.NURSE ---
Patient's IV blew in CT and patient states she does not want to be poked again to finish her fluids. Will inform provider
--- NOTE | 2022-08-16 16:00 | PC.NURSE ---
Patient has history of HTN and states she does not take her medications
== END 2022-08-16 16:19 | disposition home or self-care (01) ==
PROVIDERS: Emergency Provider Emergency Medicine; PCP Family Medicine
DX: K52.9 Noninfective gastroenteritis and colitis, unspecified (principal); E78.5 Hyperlipidemia, unspecified; I10 Essential (primary) hypertension; Z85.038 Personal history of other malignant neoplasm of large intestine; Z86.2 Personal history of diseases of the blood and blood-forming organs and certain disorders involving the immune mechanism
CPT/HCPCS: 36415; 74177; 80053; 81001; 81025; 83690; 85025; 96361; 96374; 99284; J2405; J7030; Q9967

== ENCOUNTER 2022-11-15 12:59 | Outpatient (CLI) | payer OTHER, SELFPAY ==
[2022-11-15 15:29] LABS: Anion Gap 4 mmol/L (8-16); Blood Urea Nitrogen 8 mg/dL (7-17); Calcium 9.4 mg/dL (8.4-10.2); Carbon Dioxide 30 mmol/L (22-30); Chloride 103 mmol/L (98-107); Estimated Glomerular Filt Rate > 60; Glucose 173 mg/dL (65-110); Sodium 137 mmol/L (137-145)
== END 2022-11-15 13:00 | disposition home or self-care (01) ==
PROVIDERS: Anesthesiology; PCP Family Medicine; Visit Provider Obstetrics & Gynecology
DX: Z79.899 Other long term (current) drug therapy (principal); Z01.818 Encounter for other preprocedural examination
CPT/HCPCS: 36415; 80048

== ENCOUNTER 2022-11-21 00:59 | Day surgery (SDC) | payer OTHER, SELFPAY ==
[2022-11-12 15:09] VITALS: BMI 47.2
--- NOTE | 2022-11-12 15:13 | PC.NURSE ---
Report to the Outpatient Waiting Room, entrance under the green pavilion located off [facility], at time 10:30 on date 11/21/22. Planned Procedure Time: 12:30. Time changes happen often and if your time is changed the preop area will call you the afternoon before. - You and your visitor will be asked to self-screen and do not enter if you have any COVID symptoms. - A mask is optional within the hospital at this time. Patients may have clear liquids (water, carbonated beverages, clear teas, apple juice) until 3 hours prior to surgery (9:30) with a maximum of 20 ounces. - No food from midnight until time of surgery Take the following medications with a SIP of water the morning of surgery: NONE DO NOT STOP ANY OF YOUR OTHER PRESCRIPTION MEDICATIONS PRIOR TO SURGERY ?EXCEPT THE FOLLOWING Medications to discontinue per physician: N/A Date to take last dose: N/A Please no make-up, nail spanish, hairspray, perfume, deodorant, or body powder the day of surgery. No jewelry (including any body piercings) or valuables the day of surgery, leave them at home. Please take a shower or bath the night before, or the morning of, surgery with an antibacterial soap. Wear comfortable, loose fitting clothing. - Jewelry must be removed prior to entering the operating room. Rings and piercings that are not removed may be cut off. - The hospital will not accept responsibility for valuables. - Please leave all valuables, including medications, at home the day of surgery. If you are going home after surgery, a licensed snaker tractor driver must drive you home. - NO public transportation without another adult if you receive anesthesia. - We recommend that an adult stay with you for 24 hours following discharge. - We also recommend that you do not drive, make important decision, drink alcoholic beverages, or take any drugs that were not prescribed by your health care provider for at least 24 hours after your discharge time. Follow any additional instructions given to you from your surgeon. If you or anyone in your household have experienced Covid symptoms in the past week, please notify your surgeon or the nurse liaison at the phone number below for possible testing. Telephone instructions given to MOO SIMPSON and asked if any additional questions and then verbalized understanding. Patient advised to call surgeon office or pre surgery nurse liaison [phone] if any additional questions.
--- NOTE | 2022-11-20 16:19 | PM.IMHP ---
H&P: HPI History of Present Illness Date/Time: 11/20/22 16:19 Chief Complaint: BRANDO 3 Narrative: She is here for scheduled LEEP procedure due to BRANDO 3 on cervical biopsy. Review of Systems Review of Systems: All systems reviewed & are unremarkable except as noted in HPI and below Cardiovascular: Cardiovascular: Reports no additional cardiovascular complaints, Denies chest pain and Denies dyspnea Respiratory: Respiratory: Reports no additional respiratory complaints and Denies dyspnea Gastrointestinal: Gastrointestinal: Reports abdominal pain, Denies change in bowel habits, Denies diarrhea, Denies nausea and Denies vomiting Genitourinary: Genitourinary: Reports pelvic pain Musculoskeletal: Musculoskeletal: Reports back pain Integumentary/Breasts: Skin/Breast: Reports system reviewed and no additional complaints, except as docu Neurologic: Reports system reviewed and no additional complaints, except as documented PMFSH Past Medical History Medical History History of anemia History of colon cancer History of hyperlipidemia History of hypertension Pap smear of cervix with ASCUS, cannot exclude HGSIL Papanicolaou smear of cervix with positive 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 Surgical History Surgical History History of section [place] teeth removed Family History Family History Father Hypertension Other Diabetes mellitus Family history of malignant neoplasm of ovary Social History Social History Smoking status: Never smoker Second hand tobacco smoke exposure: No Alcohol intake: never Substance use: never Substance use type: does not use Lack of Transportation: No Lack of Food: Never True Current Housing: I Have Housing Concerned About Future Housing: No Difficulty Paying Gas/Electric Bills: No Difficulty Paying for Meds: No Currently Unemployed: No Education: Associate Degree Difficulty w/ Childcare or Family Care: No Living arrangements: with family Gender identity (if verbalized by the patient): Female Spiritual care concerns: No Meds Home Medications and Allergies Home Medications Medication Instructions Recorded Confirmed Type lisinopril 20 1 tablet PO DAILY 06/04/19 11/12/22 History mg-hydrochlorothiazide 12.5 mg tablet medroxyprogesterone 150 mg/mL See Rx Instructions .Route .COMPLEX 01/28/22 11/12/22 History intramuscular syringe Allergies Allergy/AdvReac Type Severity Reaction Status Date / Time Penicillins Allergy Unknown Unknown Verified 11/15/22 15:18 Exam Const: Orientation/consciousness: oriented to person and oriented to place HENMT: Head: normal to inspection Eyes: General: appearance normal, both eyes and all related structures Resp: Effort & Inspection: normal respiratory effort Auscultation: clear to auscultation bilaterally Cardio: Rate: regular rate Rhythm: regular rhythm GI: Inspection: normal to inspection GI Palp: No Rebound tenderness present Neuro: General: oriented to person and oriented to place Cognition (Neuro): normal cognition Extrem: General: normal to inspection Psych: Appearance: grossly normal and well kempt Assessment and Plan Assessment and plan (1) 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
[2022-11-21 10:40] VITALS: BP 142/95; PULSE 82; RESP 16; TEMP 36.3; O2SAT 100; BMI 48.4
--- NOTE | 2022-11-21 10:57 | WPDHPUPDATE1 ---
History and Physical Update Update Date/Time: 11/21/22 10:57 History and Physical has been reviewed, including an updated exam of the patient. There are NO changes in the patient's condition. Risks, benefits, and alternatives have been discussed and questions answered. Patient agrees to proceed with procedure. She continues to want Mirena IUD inserted. Will do this also.
--- NOTE | 2022-11-21 10:59 | P.PNAN_ITS ---
Anes - Initial Pre Proc Eval Procedure: Operation Date: 11/21/22 12:30 Proposed Procedures p Loop Electrical Excision Procedure with Intrauterine Device Insertion - Cruzito Braswell MD Date/Time: 11/21/22 10:59 Surgeon: Cruzito Braswell MD Pre Op Diagnosis: HGSIL Patient Data Age: 37 Gender: F Height: 1.75 m Weight: 145.15 kg Allergies Allergy/AdvReac Type Severity Reaction Status Date / Time Penicillins Allergy Unknown Unknown Verified 11/15/22 15:18 Home Medications Medication Instructions Recorded Confirmed Type lisinopril 20 1 tablet PO DAILY 06/04/19 11/12/22 History mg-hydrochlorothiazide 12.5 mg tablet medroxyprogesterone 150 mg/mL See Rx Instructions .Route .COMPLEX 01/28/22 11/12/22 History intramuscular syringe Patient hx anesthesia problems: none Family hx anesthesia problems: none Results Review: All pre-operative results and documents have been reviewed as part of the pre- operative evaluation. [facility] Past Medical History Medical History History of anemia History of colon cancer History of hyperlipidemia History of hypertension Pap smear of cervix with ASCUS, cannot exclude HGSIL Papanicolaou smear of cervix with positive 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 Surgical History Surgical History History of section [place] teeth removed Family History Family History Father Hypertension Other Diabetes mellitus Family history of malignant neoplasm of ovary Social History Social History Smoking status: Never smoker Second hand tobacco smoke exposure: No Alcohol intake: never Substance use: never Substance use type: does not use Lack of Transportation: No Lack of Food: Never True Current Housing: I Have Housing Concerned About Future Housing: No Difficulty Paying Gas/Electric Bills: No Difficulty Paying for Meds: No Currently Unemployed: No Education: Associate Degree Difficulty w/ Childcare or Family Care: No Living arrangements: with family Gender identity (if verbalized by the patient): Female Spiritual care concerns: No Anes - Eval Final PreProcedure Day of Procedure 11/21/22 10:59 Patient weight: morbidly obese Heart: regular rate and rhythm Lungs: clear to auscultation Airway: Mallampati scale class II Neurological: alert and oriented Last oral intake: >/= 8 hours ASA classification: III Emergent: no Anesthetic plan: proceed Anesthesia type and monitoring: general LMA and standard monitoring Results Review: All pre-operative results and documents have been reviewed as part of the pre- operative evaluation. Informed Consent: The patient's anesthetic plan and its attendant risks and benefits were discussed with the patient/family/POA. Questions were solicited and answers provided to the satisfaction of the patient/family/POA.
--- NOTE | 2022-11-21 11:00 | WPDHPUPDATE1 ---
History and Physical Update Update Date/Time: 11/21/22 11:00 History and Physical has been reviewed, including an updated exam of the patient. There are NO changes in the patient's condition. Risks, benefits, and alternatives have been discussed and questions answered. Patient agrees to proceed with procedure. Will proceed with LEEP and Mirena IUD insertion.
[2022-11-21] MEDS: ACETAMINOPHEN 500 MG TABLET 1000 MG PO (11:10)
[2022-11-21] MEDS: LACTATED RINGERS 1,000 ML 30 ML IV CONT (11:24)
[2022-11-21] MEDS: KETOROLAC 30 MG/ML VIAL (*BKC) IV PUSH (11:36)
[2022-11-21] MEDS: LIDO 1%/EPINEPHRINE 1:100,000 50 ML VIAL 10 ML INFILTRATE (11:50)
[2022-11-21] MEDS: ceFAZolin SODIUM 1 GM VIAL (11:56)
--- NOTE | 2022-11-21 12:02 | W.PM.PROC2 ---
Procedure Note - Detailed Date of Procedure 11/21/22 Pre-op Diagnosis HGSIL Request Mirena IUD for contraception Post-op Diagnosis Same Procedure Performed 1. Loop electrosurgical excision procedure 2. Mirena IUD insertion Surgeon Cruzito Braswell MD Anesthesia MAC and Local Indications Colposcopy cervical biopsy with BRANDO 3. 2. Request Roslyn IUD for contraception. Findings Slight decreased uptake of Lugol solution at 10-12, uterus sound to 8.5 cm Description of Procedure The patient was taken to the OR where adequate IV sedation was administered. She was then prepped and draped in the usual sterile fashion and placed in the dorsal lithotomy position. A Graves speculum was placed in the vagina. Lugol?s solution was painted along the entire cervix and vaginal wall. Areas of non-uptake were noted to be around the entire squamocolumnar junction. 6 cc of lidocaine with epinephrine was injected at surgical site. The large loop electrode was used to remove the anterior or top portion of the cervix and a separate posterior specimen which included all of the hypopigmented area was excised and sent to pathology. The smallest loop electrode was used to obtain a top hat for excision of the endocervix. The bed of the excised cervical tissue along the cervix was cauterized using the roller ball. Hemostasis was noted. The uterus was sounded to 8-1/2 cm. The Mirena IUD was inserted. The IUD string was cut to 3 cm from the os. Monsel's solution was placed at the cervix at the biopsy site. All instruments were removed from vagina at this point. The patient tolerated the procedure well without complication and was taken to the recovery room in stable condition. Estimated Blood Loss 10 Drains No Packing No Pathology Yes (1. Anterior and posterior ectocervical 2.Endocervical specimen ) Complications No immediate complications Condition Stable Disposition Same day [facility] Billing Surgery - Charge Forward: Surgery Billing
[2022-11-21 12:05] VITALS: BP 147/84; PULSE 82; RESP 14; O2SAT 98
[2022-11-21] MEDS: fentaNYL CITRATE INJ (*CRX) 100 MCG/2 ML VIAL 25 MCG IV PUSH ×3 (12:25→12:53)
[2022-11-21 12:35] VITALS: BP 160/95; PULSE 71; RESP 15
[2022-11-21 13:00] VITALS: BP 147/93; PULSE 71; RESP 16; O2SAT 99
[2022-11-21 13:15] VITALS: BP 153/100; PULSE 69; RESP 17
[2022-11-21] MEDS: oxyCODONE HCL (*CRX) 5 MG TAB IR PO (13:15)
[2022-11-21 13:45] VITALS: BP 143/83; PULSE 70; RESP 15; O2SAT 100
== END 2022-11-21 13:51 | disposition home or self-care (01) ==
PROVIDERS: PCP Family Medicine; Visit Provider Obstetrics & Gynecology
PROC: 0UBC7ZZ Excision of Cervix, Via Natural or Artificial Opening (ICD-10-PCS; CPT 57522; principal; 2022-11-21 12:30)
DX: N87.0 Mild cervical dysplasia (principal); Z30.430 Encounter for insertion of intrauterine contraceptive device; I10 Essential (primary) hypertension; R87.810 Cervical high risk human papillomavirus (HPV) DNA test positive; E66.01 Morbid (severe) obesity due to excess calories; Z68.42 Body mass index [BMI] 45.0-49.9, adult
CPT/HCPCS: 57522; 58300; 36415; 80048; 88307; A9270; J0690; J1885; J2250; J2405; J2704; J3010; J7120

== ENCOUNTER 2022-12-13 06:48 | Outpatient (CLI) | payer OTHER, SELFPAY ==
--- NOTE | 2022-12-13 | ECG_ITS ---
Measurements Intervals [place] Rate: 77 P: 2 LA: 161 QRS: 5 QRSD: 90 T: 18 QT: 363 QTc: 412 Interpretive Statements SINUS RHYTHM MODERATE VOLTAGE CRITERIA FOR LVH, CONSIDER NORMAL VARIANT [MEETS CRITERIA IN ONE OF: R(aVL), S(V1), R(V5), R(V5/V6)+S(V1)] ABNORMAL ECG COMPARED TO ECG 09/27/2021 11:37:44 NO SIGNIFICANT CHANGES Electronically Signed On 12-13-2022 9:18:04 CDT by Helio Maria M.D.
== END 2022-12-13 06:49 | disposition home or self-care (01) ==
PROVIDERS: PCP Family Medicine; Visit Provider Nurse Practitioner Adult Health
DX: E66.01 Morbid (severe) obesity due to excess calories (principal); I10 Essential (primary) hypertension; Z68.42 Body mass index [BMI] 45.0-49.9, adult
CPT/HCPCS: 93005

== ENCOUNTER 2023-01-29 10:20 | Outpatient (CLI) | payer OTHER, SELFPAY ==
--- NOTE | 2023-01-29 16:22 | WPDPFTINT ---
PFT Procedure Performed PFT Procedure Performed Spirometry with Pre/Post Bronchodilator Plethysmography (Lung Vol) Diffusing Cap (DLCO) Flow Vol Loop PFT Interpretation This is a pulmonary function test with spirometry, plethysmography and diffusing capacity. The test was performed and results interpreted in accordance with the 2019 and 2005 ATS/ERS Task Force guidelines respectively using the Global Lung Function Initiative-2012 reference equations. Patient demonstrated good effort and cooperation. Reproducibility criteria were met. The quality of the spirometry maneuver was Grade A. Findings: Spirometry: The contour the inspiratory and expiratory flow tracing are normal. The FVC is 3.50 L, 94% predicted. The FEV1 is 2.89 L, 94% predicted. The FEV1: FVC ratio is 83%. Plethysmography: The total lung capacity is 4.63 L, 91% predicted. The functional residual capacity is 1.70 L, 55% predicted. The residual volume is 1.13 L, 67% predicted. Diffusing capacity: The diffusing capacity unadjusted for hemoglobin and carboxyhemoglobin is 25.3, 98% predicted. The diffusing capacity adjusted for alveolar volume is 5.69, 125% predicted. Impression: The spirometry is normal without evidence of an obstructive abnormality. The total lung capacity and residual volume are normal with a decreased functional residual capacity. This is an abnormal but nonspecific lung volume pattern. The diffusing capacity is normal. There are no prior studies for comparison
== END 2023-01-29 10:21 | disposition home or self-care (01) ==
LOC: ANHPFT 10:21
PROVIDERS: PCP Family Medicine; Visit Provider Family Medicine
DX: E66.9 Obesity, unspecified (principal)
CPT/HCPCS: 94375; 94726; 94729

== ENCOUNTER 2023-02-15 02:07 | Day surgery (SDC) | payer OTHER, SELFPAY ==
[2023-02-01 14:43] VITALS: BMI 48.6
--- NOTE | 2023-02-01 15:03 | PC.NURSE ---
Spoke with pt. in regards to upcoming EGD. Instructed pt. not take Lisinopril morning of procedure along with instructing pt. to stop taking Trulicity on Feb 10. Pt. verbalized understanding. No further questions or concerns voiced.
[2023-02-15 11:09] VITALS: BP 139/99; PULSE 78; RESP 18; TEMP 36.5; O2SAT 99
[2023-02-15] MEDS: LACTATED RINGERS 1,000 ML 150 ML IV CONT (11:13)
--- NOTE | 2023-02-15 12:08 | WPDANESEPPF ---
Anes - Initial Pre Proc Eval Procedure: Operation Date: 02/15/23 12:30 Proposed Procedures p Esophagogastroduodenoscopy - Gold Zendejas MD Date/Time: 02/15/23 12:08 Surgeon: Gold Zendejas MD Pre Op Diagnosis: morbid obesity Patient Data Age: 37 Gender: F Height: 1.75 m Weight: 143.2 kg Last Vital Signs Temp 97.7 F 02/15/23 11:09 Pulse 78 02/15/23 11:09 Resp 18 02/15/23 11:09 BP 139/99 H 02/15/23 11:09 Pulse Ox 99 02/15/23 11:09 O2 Del Method Room Air 02/15/23 11:09 Allergies Allergy/AdvReac Type Severity Reaction Status Date / Time Penicillins Allergy Unknown Unknown Verified 02/15/23 11:07 Home Medications Medication Instructions Recorded Confirmed Type lisinopril 20 1 tablet PO DAILY 06/04/19 02/01/23 History mg-hydrochlorothiazide 12.5 mg tablet levonorgestrel 21 mcg/24 hours (8 1 device intrauterine ONCE 12/20/22 02/01/23 History yrs) 52 mg intrauterine device (Mirena) dulaglutide 1.5 mg/0.5 mL 1.5 mg subcut WEEKLY 02/15/23 02/15/23 History subcutaneous pen injector (Trulicity) Patient hx anesthesia problems: none Family hx anesthesia problems: none Results Review: All pre-operative results and documents have been reviewed as part of the pre-operative evaluation. [facility] Past Medical History Medical History (Updated 12/20/22 @ 11:09 by Cruzito Braswell MD) HGSIL (high grade squamous intraepithelial dysplasia) History of anemia History of colon cancer History of hyperlipidemia History of hypertension Pap smear of cervix with ASCUS, cannot exclude HGSIL Papanicolaou smear of cervix with positive 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 Surgical History Surgical History (Updated 12/20/22 @ 10:44 by Jenni Olivia MA) H/O LEEP 11/21/22 History of section [place] teeth removed Family History Family History Father Hypertension Other Diabetes mellitus Family history of malignant neoplasm of ovary Social History Social History Smoking status: Never smoker Second hand tobacco smoke exposure: No Alcohol intake: never Substance use: never Substance use type: does not use Lack of Transportation: No Lack of Food: Never True Current Housing: I Have Housing Concerned About Future Housing: No Difficulty Paying Gas/Electric Bills: No Difficulty Paying for Meds: No Currently Unemployed: No Education: Associate Degree Difficulty w/ Childcare or Family Care: No Living arrangements: with family Gender identity (if verbalized by the patient): Female Spiritual care concerns: No Anes - Eval Final PreProcedure Day of Procedure 02/15/23 12:08 Patient weight: morbidly obese Heart: regular rate and rhythm Lungs: clear to auscultation Airway: Mallampati scale class II Neurological: alert and oriented Last oral intake: >/= 8 hours ASA classification: III Emergent: no Anesthetic plan: proceed Anesthesia type and monitoring: general GIVS and standard monitoring Results Review: All pre-operative results and documents have been reviewed as part of the pre-operative evaluation. Informed Consent: The patient's anesthetic plan and its attendant risks and benefits were discussed with the patient/family/POA. Questions were solicited and answers provided to the satisfaction of the patient/family/POA.
--- NOTE | 2023-02-15 12:11 | PM.HPGS ---
History of Present Illness History of Present Illness Consent: Risks, benefits, and alternatives have been discussed and questions answered. Patient agrees to proceed with procedure. Chief complaint: morbid obesity Narrative: Lindsay Murphy is a 37 year old female Was referred for endoscopy as part of a preoperative screening and assessment for possible weight loss surgery to be done in the next couple of months. She denies any significant gastrointestinal complaints. Review of Systems Review of Systems: All systems reviewed & are unremarkable except as noted in HPI and below PMFSH Past Medical History Medical History HGSIL (high grade squamous intraepithelial dysplasia) History of anemia History of colon cancer History of hyperlipidemia History of hypertension Pap smear of cervix with ASCUS, cannot exclude HGSIL Papanicolaou smear of cervix with positive 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 Surgical History Surgical History H/O LEEP 11/21/22 History of section [place] teeth removed Family History Family History Father Hypertension Other Diabetes mellitus Family history of malignant neoplasm of ovary Social History Social History Smoking status: Never smoker Second hand tobacco smoke exposure: No Alcohol intake: never Substance use: never Substance use type: does not use Lack of Transportation: No Lack of Food: Never True Current Housing: I Have Housing Concerned About Future Housing: No Difficulty Paying Gas/Electric Bills: No Difficulty Paying for Meds: No Currently Unemployed: No Education: Associate Degree Difficulty w/ Childcare or Family Care: No Living arrangements: with family Gender identity (if verbalized by the patient): Female Spiritual care concerns: No Meds Home Medications and Allergies Home Medications Medication Instructions Recorded Confirmed Type lisinopril 20 1 tablet PO DAILY 06/04/19 02/01/23 History mg-hydrochlorothiazide 12.5 mg tablet levonorgestrel 21 mcg/24 hours (8 1 device intrauterine ONCE 12/20/22 02/01/23 History yrs) 52 mg intrauterine device (Mirena) dulaglutide 1.5 mg/0.5 mL 1.5 mg subcut WEEKLY 02/15/23 02/15/23 History subcutaneous pen injector (Trulicity) Allergies Allergy/AdvReac Type Severity Reaction Status Date / Time Penicillins Allergy Unknown Unknown Verified 02/15/23 11:07 Vital Signs Vital Signs - 24 hr 02/15/23 11:09 Temperature 36.5 C Pulse Rate 78 Respiratory Rate 18 Blood Pressure 139/99 H Pulse Oximetry 99 Oxygen Delivery Room Air Exam Const: General: alert Nutritional Appearance: obese Orientation/consciousness: patient oriented x3 Resp: Auscultation: clear to auscultation bilaterally Cardio: Rhythm: regular rhythm GI: GI Palp: Yes Soft to palpation and No Tenderness to palpation present (GI) Neuro: General: patient oriented x3 Assessment and Plan Assessment and plan (1) Obesity: Code(s): E66.9 - Obesity, unspecified Status: Acute (2) Adult BMI 45.0-49.9 kg/sq m: Code(s): Z68.42 - Body mass index [BMI] 45.0-49.9, adult Status: Acute Assessment and Plan: EGD with possible biopsy or dilatation or cautery.
[2023-02-15 12:48] VITALS: BP 116/66; PULSE 94; RESP 18; O2SAT 94
[2023-02-15 12:58] VITALS: BP 145/89; PULSE 90; RESP 27; O2SAT 100
[2023-02-15 13:08] VITALS: BP 142/96; PULSE 80; RESP 24; O2SAT 98
== END 2023-02-15 13:16 | disposition home or self-care (01) ==
PROVIDERS: PCP Family Medicine; Visit Provider Internal Medicine Gastroenterology
PROC: 0DJ08ZZ Inspection of Upper Intestinal Tract, Via Natural or Artificial Opening Endoscopic (ICD-10-PCS; CPT 43235; principal; 2023-02-15 12:30)
DX: Z01.818 Encounter for other preprocedural examination (principal); K21.9 Gastro-esophageal reflux disease without esophagitis; I10 Essential (primary) hypertension; R87.810 Cervical high risk human papillomavirus (HPV) DNA test positive; Z79.85 Long-term (current) use of injectable non-insulin antidiabetic drugs; E66.01 Morbid (severe) obesity due to excess calories; Z68.42 Body mass index [BMI] 45.0-49.9, adult
CPT/HCPCS: 43239; 87081; J2001; J2704; J7120

== ENCOUNTER 2023-04-16 12:43 | Outpatient (CLI) | payer OTHER, SELFPAY ==
--- NOTE | ~2023-04-16 | US_ITS ---
EXAMINATION: US pelvic complete w TV DATE: 04/16/2023 16:20 INDICATION: T83.32XA - Displacement of intrauterine contraceptive dev... TECHNIQUE: Multiple transabdominal and endovaginal sonographic images of the pelvis were obtained. COMPARISON: CT abdomen pelvis 08/16/2022 FINDINGS: Somewhat limited images, secondary to BMI and uterine position. Uterus: 10.4 x 4.7 x 5.3 cm. Retroverted uterus. Endometrial complex measures 11 mm. Mixed echogenici ty material within the endometrial cavity. The IUD is poorly visualized, appears to be located in the lower uterine segment and may be flipped upside down. There is a hyperechoic focus within the endome trial cavity near the fundus. Right Ovary: Not visualized. Left Ovary: 3.0 x 3.9 x 3.0 cm. Vascular flow is present. 2.8 cm simple cyst There is no free fluid in the pelvis. IMPRESSION: Lower uterine segment IUD, possibly flipped upside down. Hyperechoic focus near the uterine fundus, a broken IUD is not excluded. Recommend comparison with pelvic radiograph, then consider removal/repla cement. Heterogeneous echogenic material within the uterine cavity may represent hemorrhage. Correlate with m enstrual status/phase. The right ovary was not visualized. Reviewed, dictated and finalized at location K. STRAPPER IMPRESSION: Lower uterine segment IUD, possibly flipped upside down. Hyperechoic focus near the uterine fundus, a broken IUD is not excluded. Recommend comparison with pe lvic radiograph, then consider removal/replacement. Heterogeneous echogenic material within the uterine cavity may represent hemorr anamika. Correlate with menstrual status/phase. The right ovary was not visualized.
[2023-04-16 13:37] LABS: Beta HCG Quantitative < 2.39 mIU/ML
[2023-04-21 16:52] LABS: Prolactin 9.1 ng/mL (***)
== END 2023-04-16 12:44 | disposition home or self-care (01) ==
LOC: ANHIMG 12:43
PROVIDERS: PCP Family Medicine; Visit Provider Obstetrics & Gynecology
DX: N64.3 Galactorrhea not associated with childbirth (principal); T83.32XA Displacement of intrauterine contraceptive device, initial encounter
CPT/HCPCS: 36415; 76830; 76856; 84146; 84702

== ENCOUNTER 2023-06-17 07:37 | Emergency (ER) | payer OTHER, SELFPAY ==
--- NOTE | ~2023-06-17 | CT_ITS ---
CT of the Abdomen and Pelvis: Indication: Abdominal pain, recent bariatric surgery Technique: 2.5 mm axial scans were obtained through the abdomen and pelvis following intravenous adm inistration of 100 cc of Omnipaque 350. Dose reduction technique was used on this scan by utilizing a utomated exposure control and iterative reconstruction technique. The dose-length product (DLP) was 1 703.31 mGy-cm. COMPARISON: 08/16/2022 Findings: Scans through the lung bases are unremarkable. The liver, spleen, pancreas, gallbladder, adrenals and kidneys are within normal limits. No evidence of aortic aneurysm. No lymphadenopathy. No bowel obstruction or bowel wall thickening. Evidence of prior bariatric surgery. Images through the pelvis were performed. Urinary bladder unremarkable. IUD present. Left strut of th e IUD appears to extend into the myometrium. No other adnexal mass seen. No ascites. Impression: No acute abnormality seen. IUD in place, with left strut appearing to extend into the myometrium. Reviewed, dictated and finalized at location . ING ATTENDANT Impression: No acute abnormality seen. IUD in place, with left strut appearing to extend into the myometrium.
[2023-06-17 07:48] VITALS: BP 142/87; PULSE 115; RESP 18; TEMP 37; O2SAT 98
--- NOTE | 2023-06-17 08:36 | ED.GENADULT ---
HPI - General Adult General Chief complaint: Recheck/Abnormal Lab/Rx Stated complaint: back/abd pain, recent sx at [facility] Time Seen by Provider: 06/17/23 07:50 History of Present Illness HPI narrative: Patient is a 37-year-old female who presents ER with left-sided abdominal pain. Ongoing for 2 days. It occurred after her child kicked her in the left side of her abdomen while they were sleeping together. She reports mild constipation. She reports difficulty eating and drinking. Of note patient had gastric bypass surgery 2 weeks ago at [facility]. Her port sites are well healing and she experienced no complications at that time. Patient has been trying to take Percocet for her pain with only minimal relief. Denies urinary symptoms. Related Data Home Medications Medication Instructions Recorded Confirmed lisinopril 20 1 tablet PO DAILY 06/04/19 02/01/23 mg-hydrochlorothiazide 12.5 mg tablet Allergies Allergy/AdvReac Type Severity Reaction Status Date / Time Penicillins Allergy Unknown Unknown Verified 06/17/23 07:51 Review of Systems Review of Systems: All systems reviewed & are unremarkable except as noted in HPI and below Constitutional: Constitutional: Reports no additional constitutional complaints ENT: Reports system reviewed and no additional complaints, except as documented Cardiovascular: Cardiovascular: Reports no additional cardiovascular complaints Respiratory: Respiratory: Reports no additional respiratory complaints Gastrointestinal: Gastrointestinal: Reports abdominal pain, Reports constipation, Denies diarrhea, Denies nausea and Denies vomiting Genitourinary: Genitourinary: Reports no additional female genitourinary complaints PMFSH Past Medical History Medical History (Updated 06/17/23 @ 12:34 by Nghia Bryant MD) HGSIL (high grade squamous intraepithelial dysplasia) History of anemia History of colon cancer History of hyperlipidemia History of hypertension Pap smear of cervix with ASCUS, cannot exclude HGSIL Papanicolaou smear of cervix with positive 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 Surgical History Surgical History (Updated 06/17/23 @ 08:38 by Nghia Bryant MD) H/O gastric bypass H/O LEEP 11/21/22 History of section [place] teeth removed Family History Family History Father Hypertension Other Diabetes mellitus Family history of malignant neoplasm of ovary Social History Social History Smoking status: Never smoker Second hand tobacco smoke exposure: No Alcohol intake: never Substance use: never Substance use type: does not use Lack of Transportation: No Lack of Food: Never True Current Housing: I Have Housing Concerned About Future Housing: No Difficulty Paying Gas/Electric Bills: No Difficulty Paying for Meds: No Currently Unemployed: No Education: Associate Degree Difficulty w/ Childcare or Family Care: No Living arrangements: with family Gender identity (if verbalized by the patient): Female Spiritual care concerns: No Exam Narrative: GENERAL: Well-appearing, morbidly obese, and in no acute distress. HEAD: Normocephalic, atraumatic. ENT: Mucous membranes moist. NECK: Supple. CHEST: Clear to auscultation. No respiratory distress. HEART: Regular rate and rhythm. Normal peripheral pulses. ABDOMEN: Soft, Mild tenderness left mid abdomen without guarding, nondistended. well-healing for surgical port sites. EXTREMITIES: Normal range of motion. No edema. SKIN: Warm, dry, no rash. NEURO: Alert and oriented x3. PSYCH: Normal mood and affect. Course Course Emergency Course: Patient resting comfortably. Informed of result and recommend f/u with counting machine operator for IUD. Discharge home. Vital Signs Vital signs: Vital Signs Temperature 98.6 F 06/17/23 07:48 Pulse Rate 115 H 06/06
[2023-06-17 09:50] VITALS: BP 142/94; PULSE 92; RESP 16; TEMP 36.6; O2SAT 100
[2023-06-17] MEDS: SODIUM CHLORIDE 0.9% IV 1,000 ML 999 ML IV CONT (10:04)
[2023-06-17] MEDS: MORPHINE SULFATE (*CRX) 4 MG/ML INJ IV PUSH (10:05)
[2023-06-17 10:24] LABS: Appearance Urine Clear (Clear); Bacteria Urine Rare /hpf; Bilirubin Urine Negative (Negative); Blood Urine Negative (Negative); Color Urine Dark Yellow (Yellow); Glucose Urine UA Negative (Negative); Ketones Urine Trace mg/dL (Negative); Leukocyte Esterase Ur Trace LEU/UL (Negative); Nitrate Urine Negative (Negative); Non Pathogenic Casts 0-2; Protein Urine 1+ mg/dL (Negative); Specific Grav Ur 1.019 (1.001-1.035); Squamous Epithelial Cell Urine Few /hpf (Few); WBC Urine 0-5 /hpf
[2023-06-17 10:25] LABS: Basophils Percent Auto 0.7 % (0.2-1.2); Eosinophils Absolute Auto 0.3 K/mm3 (0-0.3); Hematocrit 45.4 % (37.0-47.0); Hemoglobin 14.5 g/dL (12.0-15.0); Immature Granulocyte Absolute 0.01 K/mm3 (0.00-0.031); Immature Granulocyte Percent A 0.2 % (0-0.5); Lymphocytes Percent Auto 31.1 % (18.3-44.2); Mean Corpuscular HGB Conc 31.9 g/dl (32-36); Mean Corpuscular Hemoglobin 28.7 pg (26-34); Mean Corpuscular Volume 89.9 fl (80-100); Mean Platelet Volume 9.8 fl (7.4-10.4); Monocytes Absolute Auto 0.5 K/mm3 (0.1-0.6); Monocytes Percent Auto 10.7 % (2.6-8.5); Neutrophils Absolute Auto 2.3 K/mm3 (1.3-6.7); Neutrophils Percent Auto 51.3 % (45.5-73.1); Platelet Count Result 392 k/mm3 (150-375); Red Blood Count 5.05 M/mm3 (4.2-5.4); Red Cell Distribution Width 13.4 % (11.5-14.5); White Blood Count 4.5 K/mm3 (4.5-10.0)
[2023-06-17 10:44] LABS: Add Urine Microscopic? YES
[2023-06-17 11:15] VITALS: BP 130/95; PULSE 84; RESP 16; TEMP 36.6; O2SAT 99
--- NOTE | 2023-06-17 11:29 | PC.NURSE ---
Chemistry lab redrawn. Pt tolerated well. CT called informing extra green top drawn for them
[2023-06-17 11:36] VITALS: BP 141/98; PULSE 85; RESP 16; TEMP 36.6; O2SAT 100
[2023-06-17 11:40] LABS: Pregnancy On Board Control Positive; Urine Pregnancy Test Negative
[2023-06-17 11:42] LABS: Estimated Glomerular Filt Rate > 60
[2023-06-17 12:04] LABS: Alanine Aminotransferase 29 U/L (6-35); Albumin Level 3.9 g/dL (3.5-5.1); Alkaline Phosphatase 108 U/L (38-126); Anion Gap 8 mmol/L (8-16); Aspartate Amino Transferase 29 U/L (14-36); Bilirubin,Total 0.8 mg/dL (0.2-1.3); Blood Urea Nitrogen 8 mg/dL (7-17); Calcium 9.3 mg/dL (8.4-10.2); Carbon Dioxide 24 mmol/L (22-30); Chloride 104 mmol/L (98-107); Estimated Glomerular Filt Rate > 60; Glucose 108 mg/dL (65-110); Lipase 395 U/L (23-300); Potassium 3.9 mmol/L (3.4-5.0); Sodium 136 mmol/L (137-145)
[2023-06-17 13:13] VITALS: BP 142/97; PULSE 80; RESP 16; TEMP 36.7; O2SAT 100
== END 2023-06-17 13:18 | disposition home or self-care (01) ==
PROVIDERS: Emergency Provider Emergency Medicine; PCP Family Medicine
DX: G89.18 Other acute postprocedural pain (principal); R10.9 Unspecified abdominal pain; Z98.84 Bariatric surgery status; E78.5 Hyperlipidemia, unspecified; I10 Essential (primary) hypertension; Z97.5 Presence of (intrauterine) contraceptive device; Z85.038 Personal history of other malignant neoplasm of large intestine
CPT/HCPCS: 36415; 74177; 80053; 81001; 81025; 83690; 85025; 96361; 96374; 99284; J2270; J7030; Q9967

== ENCOUNTER 2023-09-17 15:38 | Emergency (ER) | payer OTHER, SELFPAY ==
--- NOTE | ~2023-09-17 | CT_ITS ---
EXAMINATION: CT facial bones w con DATE: 09/17/2023 17:32 INDICATION: dental abscess . TECHNIQUE: Computed tomography (CT) of the facial bones and maxillofacial region was performed withou t intravenous contrast. Automated exposure control and iterative reconstruction technique were employ ed. The dose-length product was 773.06 mGy-cm. COMPARISON: None. FINDINGS: Soft Tissues: Soft tissue swelling over the lateral aspect of the right mandibular body, without a d iscrete well-formed abscess detected at this time. Facial bones: No acute fracture. No lytic or blastic process. Eyes: The globes are intact. The soft tissue planes of the orbits are maintained. Paranasal Sinuses: Mild ethmoid and maxillary mucosal thickening, the remaining aerated spaces are c lear. Foreign Bodies: No radiopaque foreign bodies. Other Findings: Small periapical lucency at the root of the right mandibular second premolar with a s mall tract to the right mental foramen. Multiple sites of dental caries involving at least 2 of the r emaining mandibular teeth, including the right mandibular second premolar. Maxillary teeth are absent , except for one right maxillary molar. IMPRESSION: Right mandibular second premolar periapical lucency, with a thin tract extending to the right mental foramen and soft tissue swelling overlying the right mental foramen and lateral right mandibular body . These findings may represent odontogenic infection overlying cellulitis. No definite abscess detect ed at this time. Given apparent involvement of the mental foramen, correlate for clinical findings of mental nerve inv olvement (chin/lower lip numbness and/or paresthesia). Dental caries. Reviewed, dictated and finalized at location K. IMPRESSION: Right mandibular second premolar periapical lucency, with a thin tract extendin g to the right mental foramen and soft tissue swelling overlying the right ment al foramen and lateral right mandibular body. These findings may represent odon togenic infection overlying cellulitis. No definite abscess detected at this ti me. Given apparent involvement of the mental foramen, correlate for clinical findin gs of mental nerve involvement (chin/lower lip numbness and/or paresthesia). Dental caries.
[2023-09-17 15:52] VITALS: BP 177/97; PULSE 70; RESP 20; TEMP 36.8; O2SAT 100
[2023-09-17 16:04] VITALS: BP 168/91; PULSE 58; RESP 16; TEMP 37.2; O2SAT 100
[2023-09-17] MEDS: SODIUM CHLORIDE 0.9% IV 1,000 ML 999 ML IV CONT (17:00)
[2023-09-17] MEDS: HYDROmorphone HCL INJ (*CRX) 1 MG/ML SYR 0.5 MG IV PUSH (17:01)
[2023-09-17 17:16] LABS: Estimated CRCL calculation 116 ml/min; Estimated Glomerular Filt Rate > 60
[2023-09-17 17:29] LABS: Basophils Percent Auto 0.3 % (0.2-1.2); Eosinophils Absolute Auto 0.2 K/mm3 (0-0.3); Eosinophils Percent Auto 2.4 % (0-4.4); Hematocrit 39.9 % (37.0-47.0); Immature Granulocyte Absolute 0.02 K/mm3 (0.00-0.031); Immature Granulocyte Percent A 0.3 % (0-0.5); Lymphocytes Absolute Auto 1.34 K/mm3 (0.9-3.2); Lymphocytes Percent Auto 20.4 % (18.3-44.2); Mean Corpuscular HGB Conc 32.6 g/dl (32-36); Mean Corpuscular Volume 91.9 fl (80-100); Mean Platelet Volume 9.5 fl (7.4-10.4); Monocytes Absolute Auto 0.5 K/mm3 (0.1-0.6); Monocytes Percent Auto 7.2 % (2.6-8.5); Neutrophils Absolute Auto 4.6 K/mm3 (1.3-6.7); Neutrophils Percent Auto 69.4 % (45.5-73.1); Platelet Count Result 278 k/mm3 (150-375); Red Blood Count 4.34 M/mm3 (4.2-5.4); Red Cell Distribution Width 13.5 % (11.5-14.5); White Blood Count 6.6 K/mm3 (4.5-10.0)
[2023-09-17] MEDS: CLINDAMYCIN 300 MG in DEXTROSE 5% IN WATER 50 ML 104 MG IVPB (17:32)
[2023-09-17 17:35] VITALS: BP 189/107; PULSE 64; RESP 15; O2SAT 100
[2023-09-17 17:40] LABS: Alanine Aminotransferase 40 U/L (6-35); Albumin Level 4.1 g/dL (3.5-5.1); Alkaline Phosphatase 103 U/L (38-126); Anion Gap 5 mmol/L (4-12); Aspartate Amino Transferase 27 U/L (14-36); Bilirubin,Total 0.8 mg/dL (0.2-1.3); Blood Urea Nitrogen 11 mg/dL (7-17); Calcium 9.3 mg/dL (8.4-10.2); Carbon Dioxide 25 mmol/L (22-30); Chloride 108 mmol/L (98-107); Estimated CRCL calculation 116 ml/min; Estimated Glomerular Filt Rate > 60; Glucose 109 mg/dL (65-110); Potassium 3.7 mmol/L (3.4-5.0); Sodium 138 mmol/L (137-145)
[2023-09-17] MEDS: HYDROmorphone HCL INJ (*CRX) 1 MG/ML SYR IV PUSH (18:00)
--- NOTE | 2023-09-17 18:27 | ED.DENTAL ---
HPI - Dental/Oral General Chief complaint: Dental/Oral Stated complaint: dental pain Time Seen by Provider: 09/17/23 16:26 History of Present Illness HPI Narrative: 37-year-old female present to the emergency department for evaluation dental pain. Patient started having worsening of the pain yesterday. Patient saw her dentist and was referred to the emergency department. Patient was started on clindamycin as outpatient. Patient states he is unable to take NSAIDs for pain control but was prescribed [place] by her dentist. Related Data Home Medications Medication Instructions Recorded Confirmed lisinopril 20 1 tablet PO DAILY 06/04/19 09/17/23 mg-hydrochlorothiazide 12.5 mg tablet Allergies Allergy/AdvReac Type Severity Reaction Status Date / Time Penicillins Allergy Unknown Unknown Verified 09/17/23 16:02 NSAIDS (Non-Steroidal AdvReac Unknown Verified 09/17/23 16:02 Anti-Inflamma Review of Systems Review of Systems: All systems reviewed & are unremarkable except as noted in HPI and below PMFSH Past Medical History Medical History (Updated 09/17/23 @ 18:35 by Cricket Rivera MD) HGSIL (high grade squamous intraepithelial dysplasia) History of anemia History of colon cancer History of hyperlipidemia History of hypertension Pap smear of cervix with ASCUS, cannot exclude HGSIL Papanicolaou smear of cervix with positive 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 Surgical History Surgical History (Updated 06/17/23 @ 08:38 by Nghia Bryant MD) H/O gastric bypass H/O LEEP 11/21/22 History of section [place] teeth removed Family History Family History Father Hypertension Other Diabetes mellitus Family history of malignant neoplasm of ovary Social History Social History Smoking status: Never smoker Second hand tobacco smoke exposure: No Alcohol intake: never Substance use: never Substance use type: does not use Lack of Transportation: No Lack of Food: Never True Current Housing: I Have Housing Concerned About Future Housing: No Difficulty Paying Gas/Electric Bills: No Difficulty Paying for Meds: No Currently Unemployed: No Education: Associate Degree Difficulty w/ Childcare or Family Care: No Living arrangements: with family Gender identity (if verbalized by the patient): Female Spiritual care concerns: No Exam Narrative: APPEARANCE: Well appearing, no pain, no distress, well-nourished. HEAD: normocephalic, atraumatic. EYES: PERRLA/EOMI, conjunctivae clear. NOSE: Normal no drainage EARS:TMS clear with good light reflex. THROAT: Pharynx clear, no exudate. NECK: Supple. No adenopathy, no masses. RESPIRATORY: Airway patent, respirations nonlabored. Clear to auscultation bilaterally, no rales, rhonchi, wheezing. CARDIOVASCULAR: Regular rate and rhythm without murmurs rubs or gallops. ABDOMINAL: Soft, nontender, nondistended, normal bowel sounds MUSCULOSKELETAL: Moves all extremities. Strength/ROM intact, No edema, No calf tenderness. NEURO: Alert. Cranial nerves II through XII intact. Good gait. Good coordination. No facial droop and no paresthesia or anesthesia SKIN: Warm, dry. Normal ColorPSYCHIATRIC: Normal affect/mood. Course Vital Signs Vital signs: Vital Signs Temperature 98.3 F 09/17/23 15:52 Pulse Rate 70 09/17/23 15:52 Respiratory Rate 20 09/17/23 15:52 Blood Pressure 177/97 H 09/17/23 15:52 Pulse Oximetry 100 09/17/23 15:52 Oxygen Delivery Room Air 09/17/23 15:52 Temperature 98.9 F 09/17/23 16:04 Pulse Rate 64 09/17/23 17:35 Respiratory Rate 15 09/17/23 17:35 Blood Pressure 189/107 H 09/17/23 17:35 Pulse Oximetry 100 09/17/23 17:35 Oxygen Delivery Room Air 09/17/23 15:52 MDM - Dental/Oral MDM Narrative Medical decision making narrative: 37-year-old female
[2023-09-17] MEDS: HYDROcodone/acetaminophen (*CRX) 5-325 MG TABLET 1 TAB PO (18:49)
[2023-09-17 19:07] VITALS: PULSE 80; RESP 14; O2SAT 100
== END 2023-09-17 19:09 | disposition home or self-care (01) ==
PROVIDERS: Emergency Provider Emergency Medicine; PCP Family Medicine
DX: K04.7 Periapical abscess without sinus (principal); K02.9 Dental caries, unspecified; E78.5 Hyperlipidemia, unspecified; I10 Essential (primary) hypertension; Z98.84 Bariatric surgery status; Z86.2 Personal history of diseases of the blood and blood-forming organs and certain disorders involving the immune mechanism
CPT/HCPCS: 36415; 70487; 80053; 85025; 96361; 96365; 96375; 96376; 99284; A9270; J1170; J7030; Q9967

== ENCOUNTER 2024-01-23 15:09 | Outpatient (CLI) | payer OTHER, SELFPAY ==
--- NOTE | ~2024-01-23 | US_ITS ---
EXAMINATION: US pelvic complete DATE: 01/23/2024 16:15 INDICATION: Encounter for insertion of the intrauterine contraceptive device TECHNIQUE: Multiple transabdominal sonographic images of the pelvis were obtained. COMPARISON: Ultrasound dated 04/16/[address] dated 06/17/2023 FINDINGS: The uterus measures 12.0 x 3.8 x 5.5 cm. The endometrial complex measures 3 mm in thickness. There i s a suboptimally visualized linear echogenic and shadowing IUD, one limb of which appears to extend i nto the myometrium of the uterine fundus similarly as seen on the prior CT. The second proximal limb of the IUD is not clearly visualized. The right ovary measures 2.1 x 1.8 x 1.2 cm. The left ovary virgil sures 1.7 x 1.3 x 1.2 cm. After flow identified in both ovaries on color Doppler. There is no free fl uid in the pelvis. IMPRESSION: 1. IUD, one with weights as on the prior CT appears to extend into the uterine myometrium. The second limb of the IUD is not clearly visualized. If there is concern for structural integrity of the IUD w ould consider radiograph of the pelvis for correlation. Reviewed, dictated and finalized at location B. IMPRESSION: 1. IUD, one with weights as on the prior CT appears to extend into the uterine myometrium. The second limb of the IUD is not clearly visualized. If there is c oncern for structural integrity of the IUD would consider radiograph of the pel vis for correlation.
== END 2024-01-23 15:10 | disposition home or self-care (01) ==
PROVIDERS: Visit Provider Obstetrics & Gynecology
DX: Z30.430 Encounter for insertion of intrauterine contraceptive device (principal)
CPT/HCPCS: 76856

== ENCOUNTER 2024-02-12 01:30 | Day surgery (SDC) | payer OTHER, SELFPAY ==
--- NOTE | 2024-01-31 14:18 | PC.NURSE ---
Report to the Outpatient Waiting Room, entrance under the green pavilion located off [facility], at time _0630___ on date _02/12/24 . Planned Procedure Time: _0830_.? Time changes happen often and if your time is changed the preop area will call you the afternoon before. - You and your visitor will be asked to self-screen and do not enter if you have any COVID symptoms. Please call surgeon if you need to reschedule. - A mask is optional within the hospital at this time. Patients may have clear liquids (water, carbonated beverages, clear teas, apple juice) until 3 hours prior to surgery with a maximum of 20 ounces. - No food from midnight until time of surgery and no smoking - Infants may have breast milk until 4 hours before surgery, formula 6 hours prior to surgery. - Children will be allowed to drink immediately following surgery.? If applicable, please bring a bottle or sippy cup to assist with drinking. Juice, water, soda, and popsicles are readily available.? For infants on formula, please bring formula the day of surgery.? Pacifiers are allowed. Take only the following medications with a SIP of water on the morning of surgery: _None___ DO NOT STOP ANY OF YOUR OTHER PRESCRIPTION MEDICATIONS PRIOR TO SURGERY EXCEPT THE FOLLOWING Medications to discontinue per physician __vitamins 3 days prior to surgery. pt to call office to see if she should stop Depo Date to take last dose Please no make-up, nail kosovan, hairspray, perfume, deodorant, or body powder the day of surgery.? No jewelry (including any body piercings) or valuables the day of surgery, leave them at home.? Please take a shower or bath the night before, or the morning of, surgery with an antibacterial soap.? Wear comfortable, loose fitting clothing.? Children are encouraged to wear pajamas. - Jewelry must be removed prior to entering the operating room.? Rings and piercings that are not removed may be cut off. - The hospital will not accept responsibility for valuables.? - Please leave all valuables, including medications, at home the day of surgery. If you are going home after surgery, a licensed corrugated fastener driver must drive you home.? - NO public transportation without another adult if you receive anesthesia. - We recommend that an adult stay with you for 24 hours following discharge. - We also recommend that you do not drive, make important decision, drink alcoholic beverages, or take any drugs that were not prescribed by your health care provider for at least 24 hours after your discharge time. For Pediatric surgeries, we recommend two adults accompany the child home. Follow any additional instructions given to you from your surgeon. Telephone instructions given to Patient__and asked if any additional questions and then verbalized understanding. Patient advised to call surgeon office or pre surgery nurse liaison [phone] if any additional questions.
[2024-01-31 14:25] VITALS: BMI 38.6
[2024-02-12] VITALS (9 sets, daily range): BP systolic 124–140; BP diastolic 65–81; PULSE 63–82; RESP 14–18; TEMP 36.4–36.7; O2SAT 100; BMI 38.7
--- NOTE | 2024-02-12 05:52 | ECG_ITS ---
Test Date: 2024-02-12 07:18:16 Measurements Intervals [place] Rate: 63 P: 23 MA: 153 QRS: 20 QRSD: 90 T: 23 QT: 383 QTc: 394 Interpretive Statements SINUS RHYTHM NORMAL ELECTROCARDIOGRAM No previous ECG available for comparison Electronically Signed On 02-12-2024 07:25:35 CDT by Winston Nicholas M.D.
--- NOTE | 2024-02-12 07:31 | WPDHPUPDATE1 ---
History and Physical Update Update Date/Time: 02/12/24 07:31 History and Physical has been reviewed, including an updated exam of the patient. There are NO changes in the patient's condition. Risks, benefits, and alternatives have been discussed and questions answered. Patient agrees to proceed with procedure.
[2024-02-12] MEDS: KETOROLAC 15 MG/ML VIAL (*BKC) IV PUSH (07:41)
[2024-02-12] MEDS: ACETAMINOPHEN 500 MG TABLET 1000 MG PO (07:41)
[2024-02-12] MEDS: LACTATED RINGERS 1,000 ML 30 ML IV CONT ×2 (07:41→10:46)
[2024-02-12 07:51] LABS: BEDSIDEPREGUCG Negative (Negative)
--- NOTE | 2024-02-12 07:58 | WPDANESEPPF ---
Anes - Initial Pre Proc Eval Procedure: Operation Date: 02/12/24 08:30 Proposed Procedures p Hysteroscopy With Removal Intrauterine Device, Laparoscopic Bilateral Salpingectomy - Cruzito Braswell MD Date/Time: 02/12/24 07:58 Surgeon: Cruzito Braswell MD Pre Op Diagnosis: Displaced IUD , Sterilization Patient Data Age: 38 Gender: F Height: 1.75 m Weight: 119 kg Last Vital Signs Temp 36.4 C 02/12/24 07:37 Pulse 70 02/12/24 07:37 BP 124/80 02/12/24 07:37 Pulse Ox 100 02/12/24 07:37 O2 Del Method Room Air 02/12/24 07:37 Allergies Allergy/AdvReac Type Severity Reaction Status Date / Time Penicillins Allergy Unknown Unknown Verified 02/05/24 08:35 NSAIDS (Non-Steroidal AdvReac Unknown Verified 02/05/24 08:35 Anti-Inflamma Home Medications Medication Instructions Recorded Confirmed Type lisinopril 20 1 tablet PO DAILY 06/04/19 01/31/24 History mg-hydrochlorothiazide 12.5 mg tablet medroxyprogesterone 150 mg/mL 150 mg IM [id number] #1 mL 07/08/23 01/31/24 Rx intramuscular suspension (Depo-Provera) Laboratory Tests 02/12/24 07:37 POC Urine HCG, Qual Negative (Negative) Patient hx anesthesia problems: none Family hx anesthesia problems: none Results Review: All pre-operative results and documents have been reviewed as part of the pre-operative evaluation. 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 Surgical History Surgical History H/O gastric bypass H/O LEEP 11/21/22 History of section [place] teeth removed Family History Family History Father Hypertension Other Diabetes mellitus Family history of malignant neoplasm of ovary Social History Social History Smoking status: Never smoker Second hand tobacco smoke exposure: No Alcohol intake: never Substance use: never Substance use type: does not use Lack of Transportation: No Lack of Food: Never True Current Housing: I Have Housing Concerned About Future Housing: No Difficulty Paying Gas/Electric Bills: No Difficulty Paying for Meds: No Currently Unemployed: No Education: Associate Degree Difficulty w/ Childcare or Family Care: No Living arrangements: with family Gender identity (if verbalized by the patient): Female Spiritual care concerns: No Anes - Eval Final PreProcedure Day of Procedure 02/12/24 07:58 Patient weight: obese Heart: regular rate and rhythm Lungs: clear to auscultation Airway: Mallampati scale class II Neurological: alert and oriented Last oral intake: >/= 8 hours ASA classification: III Emergent: no Anesthetic plan: proceed Anesthesia type and monitoring: general ETT and standard monitoring Results Review: All pre-operative results and documents have been reviewed as part of the pre-operative evaluation. Informed Consent: The patient's anesthetic plan and its attendant risks and benefits were discussed with the patient/family/POA. Questions were solicited and answers provided to the satisfaction of the patient/family/POA.
[2024-02-12] MEDS: ceFAZolin 2 GM/D5W 50 ML 2 GM/50 ML BAG IVPB (08:25)
[2024-02-12] MEDS: BUPivacaine HCL 0.5% PF 30 ML VIAL INFILTRATE (08:25)
--- NOTE | 2024-02-12 09:49 | W.PM.PROC2 ---
Procedure Note - Detailed Date of Procedure 02/12/24 Pre-op Diagnosis Displaced IUD , Sterilization Post-op Diagnosis Same (Adhesions) Procedure Performed 1. Laparoscopic bilateral salpingectomy 2. Hysteroscopic removal of IUD Surgeon Cruzito Braswell MD [employer] [facility] Anesthesia General Indications patient with satisfied parity and IUD that is confirmed displaced on ultrasound. Findings On laparoscopy the anterior uterus and left proximal adnexa very scarred to the lower anterior abdominal wall left distal and mid fallopian tube free. Ovaries normal bilaterally. Normal right fallopian tube. On pelvic exam the cervix was very stenotic the uterine cavity was normal appearing the IUD was in the cavity appeared bent but when it was retrieved it was intact. Description of Procedure After informed consent was obtained patient was taken to the operating room and general endotracheal anesthesia was administered. She was placed in low lithotomy need prep prepped sterile fashion. Attention was turned to the vagina speculum inserted single-tooth tenaculum placed on anterior lip of the cervix. The cervix was very stenotic. Would not allow an os binder in. Therefore lacrimal duct dilators were used in a graduated fashion the os was opened with the lacrimal duct and then the os binder and then this allowed the cervical dilators. The cervix was dilated to a for [place] dilator. Next the [place] uterine manipulator placed into the cervical canal. The speculum was removed. Attention was then turned to the abdomen. With sterile gloves a vertical incision was made at the umbilicus and a Veress needle was inserted into the abdomen confirmation into the abdomen obtained with free flow of fluid and normal peritoneal pressures. A pneumoperitoneum of 15 mm per mercury was obtained. The 5 mm port was inserted under laparoscopic visualization. Patient was placed in Trendelenburg position. Attention was turned to the left side of the abdomen and a 5 mm port was attempt to be inserted under laparoscopic visualization. Attention was turned to the right side of the abdomen and more laterally an incision was made injecting Marcaine subcutaneously prior to the incision, do laparoscopic visualization a 5 mm port was inserted. At this time was then able to visualize the left side of the abdomen where the initial left incision was made this was very close intra abdominally to the camera port therefore an incision was made more laterally, injecting [place] subcutaneously. The 5 mm port was inserted under laparoscopic visualization. The pelvic organs were visualized. All of the anterior uterus was adhesed densely to the lower anterior abdominal wall in the proximal left fallopian tube was adhesed. Attention was turned to the right side of the abdomen and another 5 mm port was inserted under laparoscopic visualization. Using the LigaSure the right fallopian tube was excised to near the entrance to the uterus. This was removed through the port. Attention was then turned to the left fallopian tube which was grabbed at the distal end and Was ligated from the adhesed broad ligament. To the ampullary region of the fallopian tube. This ampullary region was densely adhesed to the anterior uterus. Some lysis of adhesions were performed to free up most of the fallopian tube and the fallopian tube was ligated at this point. The fallopian tube was removed through the 5 mm port. Hemostasis was noted at both sites. Patient was taken out of Trendelenburg position. At this time she was taken out of steep Trendelenburg position and attention was turned to the vaginal area. Speculum was inserted. [place] uterine manipulator Was removed from the cervical canal. Using hydrodilation the hysteroscope was inserted into the cervical canal and followed into the uterine cavity. The IUD was visualized did appear to be bent. it did not protrude through the myometrium. One arm was bent t
[2024-02-12] MEDS: fentaNYL CITRATE INJ (*CRX) 100 MCG/2 ML VIAL 25 MCG IV PUSH ×4 (10:14→10:39)
[2024-02-12] MEDS: oxyCODONE HCL (*CRX) 5 MG TAB IR PO (11:25)
[2024-02-12] MEDS: ONDANSETRON INJ 4 MG/2 ML VIAL IV PUSH (11:26)
== END 2024-02-12 11:44 | disposition home or self-care (01) ==
PROVIDERS: Anesthesiology; Visit Provider Obstetrics & Gynecology
PROC: 0UDB8ZZ Extraction of Endometrium, Via Natural or Artificial Opening Endoscopic (ICD-10-PCS; CPT 58558; principal; 2024-02-12 08:30)
DX: T83.32XA Displacement of intrauterine contraceptive device, initial encounter (principal); Y84.8 Other medical procedures as the cause of abnormal reaction of the patient, or of later complication, without mention of misadventure at the time of the procedure; Z30.2 Encounter for sterilization; I10 Essential (primary) hypertension; Z98.84 Bariatric surgery status; E66.9 Obesity, unspecified; Z68.38 Body mass index [BMI] 38.0-38.9, adult
CPT/HCPCS: 58661; 58579; 88302; 93005; A9270; J0690; J1100; J1885; J2003; J2250; J2405; J2704; J3010; J7120